=== PATIENT | female | born 1965 | race American Indian/Alaskan Native ===

== ENCOUNTER 2016-09-24 16:00 | Inpatient (IN) | payer MEDICARE ==
[2016-09-24] MEDS ORDERED: D50W (25GM) IV PRN (17:23)
[2016-09-24] MEDS ORDERED: SENOKOT PO PRN (17:23)
[2016-09-24] MEDS ORDERED: DULCOLAX PR PRN (17:23)
[2016-09-24] MEDS ORDERED: TYLENOL PO PRN (17:23)
[2016-09-24] MEDS ORDERED: VANCOMYCIN PHARMACY TO DOSE IV SCH (18:00)
--- NOTE | 2016-09-24 18:12 | History and Physical Report ---
History of Present Illness Date: 09/24/16 Referring Facility: [facility] Date of admission: 09/24/16 16:00 Chief Complaint: PVD, atherosclerosis of extremities with rest pain History of present illness: POST ADMISSION PHYSICIAN EVALUATION ONSET DATE: 08/23/2016 IMPAIRMENT GROUP CODE: 17.4 ETIOLOGIC DIAGNOSIS: PVD, atherosclerosis of extremities with rest pain STATUS CHANGES SINCE PREADMISSION SCREENING: PAS has been reviewed. In comparison, pt is with slowly improving pain control. She continues with functional deficits in self cares and mobility. Pt remains an appropriate candidate for IRU admission. PREVIOUS FUNCTIONAL STATUS: Independent with ADLs, gait, transfers prior to hospitalization CURRENT FUNCTIONAL STATUS: min-modA x2 for transfers; Angelia/CGA for gait 8 feet with RW HPI 51 y.o. female with PVD and associated rest pain previously admitted to IRU following acute care course from 08/23/16-09/13/2016. During initial admission, pt found to have an occlusion of the common femoral, left external iliac profundus and SFA arteries; required left femoral thrombectomy and left femoral to below knee bypass; IVC filter. 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 Once stable, pt was noted to have functional deficits and was admitted to IRU for aggressive therapies and ongoing medical management. Unfortunately, pt was noted to have developed a left groin infection during rehab course; transferred back to acute care on 09/16/2016. Pt underwent further revascularization to LLE; left groin washout with sartorius muscle flap; wound vac placement; IV ABX. Pt also required treatment for uncontrolled hypertension; s/p 2U pRBCs to address anemia. Pt is now transferred back to IRU to resume therapies. Past History Past Medical History: diabetes, DVT, hypertension, hyperlipidemia, PVD Past Surgical History: Other (revascularization procedures) Social history: , lives with family ( and children). denies: smoking, alcohol abuse Family history: diabetes, hypertension Medications and Allergies Allergies Allergy/AdvReac Type Severity Reaction Status Date / Time heparin Allergy Severe THROMBOCYTO Verified 09/06/16 10:08 PENIA Home Medications Medication Instructions Recorded Confirmed Last Taken Type Carvedilol [Coreg] 25 mg PO BID 08/23/16 09/15/16 1 Day Ago History Carvedilol [Coreg] 25 mg PO BID tablet 09/10/16 09/15/16 Unknown Rx Clopidogrel [Plavix] 75 mg PO QDAY tablet 09/10/16 09/15/16 Unknown Rx Fenofibrate [Tricor] 145 mg PO QDAY tablet 09/10/16 09/15/16 Unknown Rx Insulin Detemir [Levemir] 45 units SUB-Q QHS units 09/10/16 09/15/16 Unknown Rx Simvastatin [Zocor TAB] 20 mg PO QHS tablet 09/10/16 09/15/16 Unknown Rx Sodium Bicarbonate 650 mg PO BID tablet 09/10/16 09/15/16 Unknown Rx Ascorbic Acid [Vitamin C] 1,000 mg PO BID tablet 09/13/16 09/15/16 Unknown Rx Ferrous Sulfate [Feosol 325 MG tab] 325 mg PO BID tablet 09/13/16 09/15/16 Unknown Rx Insulin Detemir [Levemir] 38 units SUB-Q QHS units 09/13/16 09/15/16 Unknown Rx Warfarin [Coumadin] 5 mg PO DAILY@1700 tablet 09/13/16 09/15/16 Unknown Rx oxyCODONE /ACETAMINOPHEN [Percocet 2 tab PO Q6H PRN #30 tablet 09/13/16 Unknown Rx 5/325 mg] Active Meds: Active Medications Acetaminophen (Tylenol) 650 mg PO Q4H PRN PRN Reason: Pain MILD(1-3)/Fever >100.5/AVILA Amlodipine Besylate (Norvasc) 5 mg PO QDAY LI Ascorbic Acid (Vitamin C) 1,000 mg PO BID LI Bisacodyl (Dulcolax) 10 mg AL QDAY PRN PRN Reason: Constipation unrelieved by MOM Carvedilol (Coreg) 25 mg PO BID LI Clopidogrel Bisulfate (Plavix) 75 mg PO QDAY LI Dextrose (D50w (25gm)) 50 ml IV PRN PRN PRN Reason: Hypoglycemia Fenofibrate (Tricor) 145 mg PO QDAY LI Ferrous Sulfate (Feosol) 325 mg PO BID LI Levofloxacin/Dextrose (Levaquin 750mg/150ml) 750 mg in 150 mls @ 100 mls/hr IV Q24HR LI PRN Reason: Protocol Insulin Aspart (Novolog) 0 units SUB-Q ACHS [facility] PRN Reason: Protocol Insulin Detemir (Levemir) 10 units SUB-Q QHS [facility] Losartan Potassium (Cozaar) 50 mg PO QDAY [facility] Oxycodone/Acetaminophen (Percocet 5/325) 2 tab PO Q6H PRN PRN Reason: Pain, Moderate (4-6) Polyethylene Glycol (Miralax 3350) 17 gm PO BID PRN PRN Reason: constipation Senna (Senokot) 8.6 mg PO Q12H PRN PRN Reason: Laxative Effect Simvastatin (Zocor) 20 mg PO QHS [facility] Sodium Bicarbonate (Sodium Bicarbonate) 650 mg PO BID [facility] Vancomycin HCl (Vancomycin Pharmacy To Dose) 1 each IV PKCONSULT [facility] PRN Reason: Protocol Warfarin Sodium (Coumadin Pharmacy To Dose) 1 each PO PKCONSULT LI PRN Reason: Protocol Warfarin Sodium (Coumadin) 3 mg PO DAILY@1700 LI PRN Reason: Protocol Review of Systems All systems: negative Ears, nose, mouth and throat: no headache Cardiovascular: no chest pain Respiratory: no cough Gastrointestinal: no nausea, no vomiting Musculoskeletal: gait dysfunction, other (LLE pain, 8/10) Exam - Constitutional Vitals: Vital Signs - 12hr 09/24/16 17:21 Temperature 98.4 F Pulse Rate [ 80 From Monitor] Respiratory 18 Rate Blood Pressure 193/72 [Right Arm] O2 Sat by Pulse 100 Oximetry General appearance: no acute distress, obese - EENT Eyes: EOM intact ENT: hearing intact - Neck Neck: supple, normal ROM - Respiratory Respiratory effort: normal Respiratory: bilateral: CTA - Cardiovascular Rhythm: regular Heart Sounds: Present: S1 & S2 - Extremities Extremity abnormal: edema (LLE), other (wound vac to left groin; dressing in place to left calf; staple to left groin, no acute drainage) - Gastrointestinal General gastrointestinal: Present: soft, non-tender, normal bowel sounds - Musculoskeletal Musculoskeletal: other (3/5 RLE; 2/5 LLE; except 4/5 ankle DF/PF bilaterally) - Neurologic Neurologic: CNII-XII intact, other (sensation grossly intact) - Psychiatric Psychiatric: appropriate mood/affect, intact judgment & insight, memory intact, cooperative - Labs Labs: Laboratory Results - last 72 hr 09/24/16 17:13 POC Glucose 220 H Assessment and Plan Assessment and plan: 51 y.o female with PVD, s/p revascularization procedures to LLE; HIT; DVT; compartment syndrome, s/p fasciotomies; left groin infection; acute blood loss anemia; gait dysfunction. The patient is now medically stable, however, requires ongoing medical management. Pt is appropriate for inpatient rehabilitation admission and is thought to be able to tolerate at least 3 hours of therapy a day, 5 days a week including 1.5 hours of physical therapy and 1.5 hours of occupational therapy. Patient is able to understand and follow basic directions and has attainable rehab goals. Potential barriers/complications include falls, infection, syncope, hypotension, hypoglycemia, wound dehiscence, uncontrolled pain. Plan 1. Rehabilitation- Pt will undergo multidisciplinary/integrative rehab PT/OT, Nursing. Areas to be addressed include, but are not limited to PT for mobility , strengthening, transfer training, ROM, endurance, stairs, balance; OT for ADLs , household tasks, adaptive equipment; Nursing for carryover of therapies, pain control, education, skin integrity, medication management, bowel/bladder management; Nutrition as needed; emergency services professional for discharge planning and equipment needs. Potential interventions include appropriate assistive device or adaptive equipment. Expected overall level of functional improvement by discharge is Oscar to supervision for gait, transfers, ADLs. Pt will tentatively be discharged home with outpatient PT and wound care. Estimated length of stay is 1-2 weeks. 2. PVD- s/p multiple revasculatization procedures with noted complications; continue pain control; wound care nurse for wound vac management; ongoing need for IV ABX due to left groin infection 3. acute blood loss anemia- recheck labs in AM; continue iron supplementation 4. HTN- follow closely on current regimen; medication increased due to accelerated HTN prior to transfer; avoid hypotension 5. DM- continue ADA diet, levemir, SSI; follow closely and increase levemir as needed 6. HLD- zocor, tricor 7. DVT- coumadin - Patient Problems (1) Atherosclerosis of [place] arteries of the extremities with rest pain Current Visit: No Status: Acute Qualifiers: Peripheral atherosclerosis location: P Laterality: L (2) Infection of vascular bypass graft Current Visit: Yes Status: Acute Qualifiers: Encounter type: initial encounter Qualified Code(s): T82.7XXA - Infection and inflammatory reaction due to other cardiac and vascular devices, implants and grafts, initial encounter (3) Unsteady gait Current Visit: Yes Status: Acute (4) Acute blood loss as cause of postoperative anemia Current Visit: Yes Status: Acute (5) Diabetes Current Visit: No Status: Chronic Qualifiers: Diabetes mellitus type: type 2 Diabetes mellitus complication status: with hyperglycemia Diabetes mellitus complication detail: D Diabetic retinopathy severity: D Proliferative retinopathy type: P Diabetes mellitus macular edema: D Diabetes mellitus terminal system operator insulin use: with terminal system operator use Laterality: L Chronic kidney disease stage: C Qualified Code(s): E11.65 - Type 2 diabetes mellitus with hyperglycemia; Z79.4 - technician terminal and repeater (current) use of insulin (6) Hypertension Current Visit: Yes Status: Chronic Qualifiers: Hypertension type: essential hypertension Qualified Code(s): I10 - Essential (primary) hypertension
[2016-09-24] MEDS: PERCOCET 5/325 PO PRN (18:47)
[2016-09-24] MEDS: LEVEMIR SUB-Q SCH (20:40)
[2016-09-24] MEDS: VANCOMYCIN 2,000 MG in NACL 0.9% 500 ML 500 ML IV SCH (21:00)
[2016-09-24] MEDS: COUMADIN PO SCH (21:03)
[2016-09-24] MEDS: FEOSOL PO SCH (21:05)
[2016-09-24] MEDS: VITAMIN C PO SCH (21:06)
[2016-09-24] MEDS: COREG PO SCH (21:07)
[2016-09-24] MEDS: SODIUM BICARBONATE PO SCH (21:07)
[2016-09-24] MEDS: ZOCOR PO SCH (21:07)
[2016-09-24] MEDS ORDERED: MIRALAX 3350 PO PRN (22:00)
[2016-09-24] MEDS: NOVOLOG SUB-Q SCH (22:04)
[2016-09-25] MEDS: PERCOCET 5/325 PO PRN ×4 (02:11→21:05)
[2016-09-25 05:22] LABS: Albumin 2.3 g/dL (3.9-5); Albumin/Globulin Ratio 0.7 %; Alkaline Phosphatase 41 units/L (35-129); Anion Gap 16 mmol/L; Bilirubin,Total < 0.2 mg/dL (0.1-1.2); Blood Urea Nitrogen 8 mg/dL (7-17); Calcium 7.9 mg/dL (8.4-10.2); Carbon Dioxide 23 mmol/L (22-30); Chloride 110.2 mmol/L (98-107); Glucose 154 mg/dL (65-100); Potassium 3.7 mmol/L (3.6-5.0); Sodium 145 mmol/L (137-145); Total Protein 5.4 g/dL (6.3-8.2)
[2016-09-25 05:24] LABS: Basophils % (Auto) 0.6 % (0.0-1.8); Eosinophils % (Auto) 3.3 % (0.0-4.3); Hematocrit 23.4 % (30.3-42.9); Hemoglobin 7.6 gm/dl (10.1-14.3); Mean Corpuscular HGB Conc 32 % (30-34); Mean Corpuscular Hemoglobin 26 pg (28-32); Mean Corpuscular Volume 81 fl (79-97); Platelet Count 464 K/mm3 (140-440); Red Cell Distribution Width 17.9 % (13.2-15.2); White Blood Count 8.1 K/mm3 (4.5-11.0)
[2016-09-25 05:37] LABS: INR 3.12 (0.87-1.13)
[2016-09-25 05:39] LABS: Alanine Aminotransferase < 5 units/L (7-56)
[2016-09-25] MEDS: FEOSOL PO SCH ×2 (08:23→21:04)
[2016-09-25] MEDS: SODIUM BICARBONATE PO SCH ×2 (08:23→21:07)
[2016-09-25] MEDS: VITAMIN C PO SCH ×2 (08:23→21:06)
[2016-09-25] MEDS: PLAVIX PO SCH (08:23)
[2016-09-25] MEDS: COZAAR PO SCH (08:24)
[2016-09-25] MEDS: TRICOR PO SCH (08:24)
[2016-09-25] MEDS: NORVASC PO SCH (08:25)
[2016-09-25] MEDS: COREG PO SCH ×2 (08:25→21:13)
[2016-09-25] MEDS: NOVOLOG SUB-Q SCH ×4 (08:47→21:39)
[2016-09-25] MEDS: LEVAQUIN 750MG/150ML 750 MG/150 ML BAG IV SCH (10:57)
[2016-09-25] MEDS: VANCOMYCIN 2,000 MG in NACL 0.9% 500 ML 500 ML IV SCH ×2 (12:29→21:10)
[2016-09-25] MEDS ORDERED: COUMADIN PO SCH (17:00)
[2016-09-25] MEDS: COUMADIN PO SCH (17:11)
[2016-09-25] MEDS: ZOCOR PO SCH (21:06)
[2016-09-25] MEDS: LEVEMIR SUB-Q SCH (21:12)
[2016-09-26] MEDS: PERCOCET 5/325 PO PRN ×3 (03:13→18:06)
[2016-09-26 04:57] LABS: INR 2.84 (0.87-1.13)
[2016-09-26] MEDS: NOVOLOG SUB-Q SCH ×4 (08:34→21:19)
[2016-09-26] MEDS: TRICOR PO SCH (08:37)
[2016-09-26] MEDS: SODIUM BICARBONATE PO SCH ×2 (08:37→21:25)
[2016-09-26] MEDS: VITAMIN C PO SCH ×2 (08:37→21:17)
[2016-09-26] MEDS: PLAVIX PO SCH (08:37)
[2016-09-26] MEDS: COREG PO SCH ×2 (08:38→21:17)
[2016-09-26] MEDS: FEOSOL PO SCH ×2 (08:38→21:17)
[2016-09-26] MEDS: COZAAR PO SCH (08:38)
[2016-09-26] MEDS: NORVASC PO SCH (08:42)
[2016-09-26] MEDS: LEVAQUIN 750MG/150ML 750 MG/150 ML BAG IV SCH (11:04)
[2016-09-26] MEDS: VANCOMYCIN 2,000 MG in NACL 0.9% 500 ML 500 ML IV SCH ×2 (12:44→21:22)
[2016-09-26] MEDS: COUMADIN PO SCH (18:04)
[2016-09-26] MEDS: ZOCOR PO SCH (21:17)
[2016-09-26] MEDS: LEVEMIR SUB-Q SCH (21:18)
[2016-09-27] MEDS: PERCOCET 5/325 PO PRN ×4 (00:27→21:04)
[2016-09-27 05:01] LABS: Hematocrit 22.5 % (30.3-42.9); Hemoglobin 7.3 gm/dl (10.1-14.3); Mean Corpuscular HGB Conc 32 % (30-34); Mean Corpuscular Hemoglobin 26 pg (28-32); Mean Corpuscular Volume 80 fl (79-97); Platelet Count 469 K/mm3 (140-440); Red Blood Count 2.82 M/mm3 (3.65-5.03); White Blood Count 8.2 K/mm3 (4.5-11.0)
[2016-09-27 05:08] LABS: INR 2.8 (0.87-1.13)
[2016-09-27] MEDS: FEOSOL PO SCH ×2 (08:30→21:04)
[2016-09-27] MEDS: NORVASC PO SCH (08:31)
[2016-09-27] MEDS: SODIUM BICARBONATE PO SCH ×2 (08:31→21:05)
[2016-09-27] MEDS: TRICOR PO SCH (08:31)
[2016-09-27] MEDS: VITAMIN C PO SCH ×2 (08:31→21:03)
[2016-09-27] MEDS: PLAVIX PO SCH (08:31)
[2016-09-27] MEDS: NOVOLOG SUB-Q SCH ×4 (08:32→21:45)
[2016-09-27] MEDS: COREG PO SCH ×2 (08:32→21:02)
[2016-09-27] MEDS: COZAAR PO SCH (08:32)
[2016-09-27] MEDS ORDERED: NORVASC PO ONE (09:00)
[2016-09-27] MEDS: LEVAQUIN 750MG/150ML 750 MG/150 ML BAG IV SCH (11:15)
--- NOTE | 2016-09-27 11:28 | IRU Plan of Care ---
Interdisciplinary Plan of Care - IP IRU INTERDISCIPLINARY PLAN: [facility] Inpatient Rehab Unit Plan of Care IRU Interdisciplinary Care Plan Start: 09/24/16 17: 21 Freq: Admission then PRN Status: Active Document 09/27/16 09:29 DB (Rec: 09/27/16 09:35 DB [id number]) Interdisciplinary Problem List Interdisciplinary Problem List Interdisciplinary Problem List Impaired Bathing/Grooming Query Text:Answers will Trigger Problems Impaired Dressing and Outcomes on Worklist. Impaired Mobility Impaired Transfers Impaired Toileting Pain Management Knowledge Deficits Impaired Skin/Tissue Integrity Impaired Safety Medications Education Diabetes Education IRU Interdisciplinary Care Plan Therapy Services Therapy Services Will Include: Physical Therapy Query Text:Patient will be seen for a Occupational Therapy minimum of 3 hours of daily therapy 5 out of 7 days a week. Therapy intensity may be adjusted within a 7 consecutive day period to effectively serve the individual needs of the patient. Treatment Frequency/Intensity/Duration Treatment Frequency 5 days per week Treatment Intensity 1.5 hours per discipline (PT/OT ) daily Treatment Duration 10-14 days Problem Area: Eating/Swallowing Eating/Swallowing Outcomes Eating/Swallowing Interventions Problem Area: Bathing/Grooming Bathing/Grooming Outcomes Improve [place] w/ Grooming Improve [place] w/ Bathing Bathing/Grooming Interventions ADL Training Use of Assistive Devices Therapeutic Exercise Therapeutic Activity Balance Work Activity Tolerance Work Patient/Caregiver Education Problem Area: Dressing Dressing Outcomes Improve [place] w/ UB Dressing Improve [place] w/ LB Dressing Dressing Interventions ADL Training Use of Assistive Devices Therapeutic Exercise Balance Work Patient/Caregiver Education Problem Area: Mobility Mobility Outcomes Improve [place] w/ Bed Mobility Improve [place] w/ Ambulation Improve [place] w/ Stairs /Curb Mobility Interventions Therapeutic Exercise Neuromuscular Re-Ed. Activity Tolerance Work Use of Assistive Devices Gait Training Problem Area: Transfers Transfers Outcomes Improve [place] w/ Bed Transfers Improve [place] w/ Car Transfers Transfers Interventions Transfer Training Therapeutic Exercise Neuromuscular Re-Education Activity Tolerance Work Use of Assistive Devices Problem Area: Bowel/Bladder Managment Bowel/Bladder Outcomes Continent of Bladder Remain free of UTI Bowel/Bladder Interventions Bladder Training Program Education for Assistive Devices (Ostomy, Cath) Patient/Caregiver Education Problem Area: Toileting Toileting Outcomes Improve [place] w/ Toileting Toileting Interventions ADL Training Balance Work Use of Assistive Devices Patient/Caregiver Education Problem Area: Nutrition Nutrition Outcomes Understand and Comply w/ Diet Improve/Maintain Oral Intake Nutrition Interventions Monitor Nutrient Intake Patient/Caregiver Education Problem Area: Comprehension Comprehension Outcomes Comprehension Interventions Problem Area: Expression Expression Outcomes Expression Interventions Problem Area: Problem Solving Problem Solving Outcomes Problem Solving Interventions Problem Area: Memory Memory Outcomes Memory Interventions Problem Area: Pain Management Pain Management Outcomes Demonstrate/Verbalize Pain Strategies Pain Management Interventions Medication Management Positioning/Turning Patient/Caregiver Education Problem Area: Knowledge Deficits Knowledge Deficits Outcomes Verbalize Precautions Knowledge Deficits Interventions Disease/Injury/Sx. Intervention Education Medication Use Education Safety Education Problem Area: Skin/Tissue Integrity Skin/Tissue Integrity Outcomes Exhibit Healing of Wound/ Incision Demonstrate Understanding of Pressure Relief Skin/Tissue Integrity Interventions Skin/Wound Care Pressure Relief Instruction Dressing Change Education Positioning/Turning Problem Area: Social Interaction Social Interaction Outcomes Social Interaction Interventions Problem Area: Adjustment to Disability Adjustment to Disability Outcomes Adjustment to Disability Interventions Problem Area: Discharge Concerns Discharge Concerns Outcomes Discharge Home w/ Necessary Equipment Have Home Health/Outpatient Services Discharge Concerns Interventions Discharge Planning Family/Caregiver Conference Family/Caregiver Training Problem Area: Community Reintegration Community Reintegration Outcomes Demonstrate Understanding of Community Resources Community Reintegration Interventions Provide Community Resources Problem Area: Home Management Home Management Outcomes Home Management Interventions Problem Area: Safety Safety Outcomes Provide Safe Environment Perform Selfcare Safely Demonstrate Good Safety w/ Transfers/Mobility Safety Interventions Identify Fall Risk [place] Pt. to Environment Reduce Environmental Hazards Problem Area: Medication Education Medication Education Outcomes Patient/Caregiver will Verbalize Understanding of Medications Medication Education Interventions Explain Administration/Side Effects/Interactions Problem Area: Diabetes Education Diabetes Education Outcomes Demonstrate Knowledge of Resources Availlable in Diabetic Ed. Folder Diabetes Education Interventions Give Pt. Diabetes Education Folder Discuss Pathophysiology of Diabetes Problem Area: Oxygenation Oxygenation Outcomes Oxygenation Interventions Problem Area: Cardiovascular Cardiovascular Outcomes Cardiovascular Interventions Physician Only Medical Prognosis and Rehabilitation Patient demonstrates good Potential (Completed by Physician) rehab potential. Medical Prognosis: Good This plan of care has been developed based on the findings from the pre- admission assessment, post admission physician evaluation, information gathered from the assessments from all therapy disciplines and other pertinent clinicians. The plan of care has been reviewed and discussed in collaboration with the interdisciplinary team. The plan of care will be reviewed and updated at least weekly. 51 y.o female with PVD, s/p revascularization procedures to LLE; HIT; DVT; compartment syndrome, s/p fasciotomies; left groin infection; acute blood loss anemia; gait dysfunction. The patient remains at risk for falls, infection, syncope, hypotension, hypoglycemia, wound dehiscence, uncontrolled pain. Pain and anemia are currently stable; BP remains uncontrolled with med adjustments made on today. Pt is tolerating therapies and continues with functional deficits; pt remains an appropriate candidate for IRU admission.
--- NOTE | 2016-09-27 11:29 | Progress Note ---
Assessment and Plan 51 y.o morbidly obese female with PVD, s/p revascularization procedures to LLE; HIT; DVT; compartment syndrome, s/p fasciotomies; left groin infection; acute blood loss anemia; gait dysfunction - PVD- s/p multiple revasculatization procedures with noted complications; continue pain control; wound care nurse consulted for wound vac management; ongoing need for IV ABX due to left groin infection - acute blood loss anemia- stable; transfer if Hgb drops<7; continue iron supplementation - HTN- uncontrolled; norvasc increased on today; continue to follow closely - DM- stable on current regimen - DVT/HIT positive- coumadin - morbid obesity- BMI 47.6 - Patient Problems (1) Atherosclerosis of [place] arteries of the extremities with rest pain Current Visit: No Status: Acute Qualifiers: Peripheral atherosclerosis location: P Laterality: L (2) Infection of vascular bypass graft Current Visit: Yes Status: Acute Qualifiers: Encounter type: initial encounter Qualified Code(s): T82.7XXA - Infection and inflammatory reaction due to other cardiac and vascular devices, implants and grafts, initial encounter (3) Unsteady gait Current Visit: Yes Status: Acute (4) Acute blood loss as cause of postoperative anemia Current Visit: Yes Status: Acute (5) Diabetes Current Visit: No Status: Chronic Qualifiers: Diabetes mellitus type: type 2 Diabetes mellitus complication status: with hyperglycemia Diabetes mellitus complication detail: D Diabetic retinopathy severity: D Proliferative retinopathy type: P Diabetes mellitus macular edema: D Diabetes mellitus fdc insulin use: with fdc use Laterality: L Chronic kidney disease stage: C Qualified Code(s): E11.65 - Type 2 diabetes mellitus with hyperglycemia; Z79.4 - senior living (current) use of insulin (6) Hypertension Current Visit: Yes Status: Chronic Qualifiers: Hypertension type: essential hypertension Qualified Code(s): I10 - Essential (primary) hypertension (7) Morbid (severe) obesity due to excess calories Current Visit: Yes Status: Acute Subjective Date of service: 09/27/16 Principal diagnosis: PVD, athlerosclerosis with rest pain Interval history: Pt seen in room this AM, F/U IPR course, PVD, left groin infection. Pain remains controlled on current regimen. BP uncontrolled; meds modified Objective - Constitutional Vitals: Vital Signs - 12hr 09/27/16 09/27/16 09/27/16 07:46 08:00 08:31 Pulse Rate 77 Respiratory 20 Rate Respiratory 20 Rate [Bilateral Foot] Respiratory 20 Rate [Left Leg] Blood Pressure 182/88 09/27/16 09/27/16 08:32 09:24 Pulse Rate 77 80 Respiratory Rate Respiratory Rate [Bilateral Foot] Respiratory Rate [Left Leg] Blood Pressure 182/88 170/85 General appearance: Present: no acute distress, obese, other (in WC) - EENT Eyes: EOM intact ENT: hearing intact - Neck Neck: supple, normal ROM - Respiratory Respiratory effort: normal Respiratory: bilateral: CTA - Cardiovascular Rhythm: regular Heart Sounds: Present: S1 & S2 Extremity abnormal: edema (LLE), other (wound vac in place) - Gastrointestinal General gastrointestinal: Present: soft, non-tender - Neurologic Neurologic: CNII-XII intact, moves all extremities - Psychiatric Psychiatric: appropriate mood/affect, cooperative - Allied health notes Allied health notes reviewed: PT (modA for transfers and gait up to 70 feet with RW), OT (Angelia for LB dressing; Dash for grooming) - Labs CBC & Chem 7: 09/27/16 04:35 09/25/16 04:45 Labs: Abnormal lab results 09/26/16 09/26/16 09/26/16 Range/Units 11:46 16:41 20:55 RBC (3.65-5.03) M/mm3 Hgb (10.1-14.3) gm/dl Hct (30.3-42.9) % MCH (28-32) pg RDW (13.2-15.2) % Plt Count (140-440) K/mm3 PT (12.2-14.9) Sec. INR (0.87-1.13) POC Glucose 152 H 190 H 210 H (70-105) 09/27/16 09/27/16 09/27/16 Range/Units 04:31 04:35 06:36 RBC 2.82 L (3.65-5.03) M/mm3 Hgb 7.3 L (10.1-14.3) gm/dl Hct 22.5 L (30.3-42.9) % MCH 26 L (28-32) pg RDW 18.0 H (13.2-15.2) % Plt Count 469 H (140-440) K/mm3 PT 29.7 H (12.2-14.9) Sec. INR 2.80 H (0.87-1.13) POC Glucose 141 H (70-105) 09/27/16 Range/Units 11:15 RBC (3.65-5.03) M/mm3 Hgb (10.1-14.3) gm/dl Hct (30.3-42.9) % MCH (28-32) pg RDW (13.2-15.2) % Plt Count (140-440) K/mm3 PT (12.2-14.9) Sec. INR (0.87-1.13) POC Glucose 139 H (70-105)
[2016-09-27] MEDS: VANCOMYCIN 2,000 MG in NACL 0.9% 500 ML 500 ML IV SCH (13:28)
[2016-09-27] MEDS: COUMADIN PO SCH (18:24)
[2016-09-27] MEDS: LEVEMIR SUB-Q SCH (21:00)
[2016-09-27] MEDS: ZOCOR PO SCH (21:05)
[2016-09-28] MEDS: PERCOCET 5/325 PO PRN ×4 (03:52→21:13)
[2016-09-28] MEDS: NOVOLOG SUB-Q SCH ×3 (07:30→16:51)
[2016-09-28] MEDS: FEOSOL PO SCH ×2 (08:56→22:40)
[2016-09-28] MEDS: TRICOR PO SCH (08:57)
[2016-09-28] MEDS: VITAMIN C PO SCH ×2 (08:57→22:39)
[2016-09-28] MEDS: PLAVIX PO SCH (08:58)
[2016-09-28] MEDS: NORVASC PO SCH (08:58)
[2016-09-28] MEDS: COREG PO SCH ×2 (08:59→22:38)
[2016-09-28] MEDS: COZAAR PO SCH (08:59)
[2016-09-28] MEDS: SODIUM BICARBONATE PO SCH ×2 (08:59→22:40)
[2016-09-28] MEDS: LEVAQUIN 750MG/150ML 750 MG/150 ML BAG IV SCH (10:00)
[2016-09-28] MEDS ORDERED: COZAAR PO ONE (10:00)
[2016-09-28 10:11] LABS: INR 1.93 (0.87-1.13)
[2016-09-28] MEDS: VANCOMYCIN 2,000 MG in NACL 0.9% 500 ML 500 ML IV SCH (12:34)
--- NOTE | 2016-09-28 14:40 | Progress Note ---
Assessment and Plan 51 y.o morbidly obese female with PVD, s/p revascularization procedures to LLE; HIT; DVT; compartment syndrome, s/p fasciotomies; left groin infection; acute blood loss anemia; gait dysfunction - PVD- s/p multiple revasculatization procedures with noted complications; continue pain control - wound care- wound vac and dressing changesd completed on today - left groin infection- continue IV ABX - acute blood loss anemia- repeat H/H in AM; continue iron supplementation - HTN- uncontrolled; norvasc increased on yesterday; cozaar increased on today; continue to follow - DM- stable on current regimen - DVT/HIT positive- coumadin - morbid obesity- BMI 47.6 - Patient Problems (1) Atherosclerosis of [place] arteries of the extremities with rest pain Current Visit: No Status: Acute Qualifiers: Peripheral atherosclerosis location: P Laterality: L (2) Infection of vascular bypass graft Current Visit: Yes Status: Acute Qualifiers: Encounter type: initial encounter Qualified Code(s): T82.7XXA - Infection and inflammatory reaction due to other cardiac and vascular devices, implants and grafts, initial encounter (3) Unsteady gait Current Visit: Yes Status: Acute (4) Acute blood loss as cause of postoperative anemia Current Visit: Yes Status: Acute (5) Diabetes Current Visit: No Status: Chronic Qualifiers: Diabetes mellitus type: type 2 Diabetes mellitus complication status: with hyperglycemia Diabetes mellitus complication detail: D Diabetic retinopathy severity: D Proliferative retinopathy type: P Diabetes mellitus macular edema: D Diabetes mellitus termite treater insulin use: with senior care use Laterality: L Chronic kidney disease stage: C Qualified Code(s): E11.65 - Type 2 diabetes mellitus with hyperglycemia; Z79.4 - [facility] (current) use of insulin (6) Hypertension Current Visit: Yes Status: Chronic Qualifiers: Hypertension type: essential hypertension Qualified Code(s): I10 - Essential (primary) hypertension (7) Morbid (severe) obesity due to excess calories Current Visit: Yes Status: Acute Subjective Date of service: 09/28/16 Principal diagnosis: PVD, athlerosclerosis with rest pain Interval history: Pt seen in room this AM, F/U IPR course, PVD, left groin infection. Pain reported 03/22; wound nurse present to complete vac/dressing changes Objective - Constitutional Vitals: Vital Signs - 12hr 09/28/16 09/28/16 09/28/16 07:53 08:58 08:59 Temperature 98.8 F Pulse Rate 76 76 Pulse Rate [ 76 Right Brachial] Respiratory 16 Rate Blood Pressure 174/80 174/80 Blood Pressure 174/80 [Right Arm] O2 Sat by Pulse 97 Oximetry 09/28/16 10:55 Temperature Pulse Rate Pulse Rate [ Right Brachial] Respiratory Rate Blood Pressure 174/80 Blood Pressure [Right Arm] O2 Sat by Pulse Oximetry General appearance: Present: mild distress, obese - EENT Eyes: EOM intact ENT: hearing intact - Neck Neck: supple, normal ROM - Respiratory Respiratory effort: normal Extremity abnormal: edema (LLE) - Musculoskeletal Musculoskeletal: left sided weakness (LLE) - Neurologic Neurologic: CNII-XII intact - Psychiatric Psychiatric: appropriate mood/affect, cooperative - Allied health notes Allied health notes reviewed: PT (min-modA for transfers; Angelia for gait up to 70 feet) - Labs CBC & Chem 7: 09/27/16 04:35 09/25/16 04:45 Labs: Abnormal lab results 09/27/16 09/27/16 09/28/16 Range/Units 16:18 21:08 06:31 PT (12.2-14.9) Sec. INR (0.87-1.13) POC Glucose 142 H 215 H 132 H (70-105) 09/28/16 09/28/16 Range/Units 11:41 Unknown PT 22.1 H (12.2-14.9) Sec. INR 1.93 H (0.87-1.13) POC Glucose 150 H (70-105)
[2016-09-28] MEDS: COUMADIN PO SCH (16:51)
[2016-09-28] MEDS: ZOCOR PO SCH (22:39)
[2016-09-29] MEDS: NOVOLOG SUB-Q SCH ×5 (03:44→22:00)
[2016-09-29] MEDS: PERCOCET 5/325 PO PRN ×5 (03:47→23:18)
[2016-09-29 05:28] LABS: Hematocrit 22.6 % (30.3-42.9); Hemoglobin 7.3 gm/dl (10.1-14.3)
[2016-09-29 05:39] LABS: INR 2.17 (0.87-1.13)
[2016-09-29] MEDS: LEVEMIR SUB-Q SCH ×2 (05:40→23:22)
[2016-09-29] MEDS: LEVAQUIN 750MG/150ML 750 MG/150 ML BAG IV SCH (09:08)
[2016-09-29] MEDS: COZAAR PO SCH (09:11)
[2016-09-29] MEDS: NORVASC PO SCH (09:12)
[2016-09-29] MEDS: COREG PO SCH ×2 (09:12→23:20)
[2016-09-29] MEDS: FEOSOL PO SCH ×2 (09:12→23:22)
[2016-09-29] MEDS: SODIUM BICARBONATE PO SCH ×2 (09:12→23:21)
[2016-09-29] MEDS: VITAMIN C PO SCH ×2 (09:12→23:21)
[2016-09-29] MEDS: TRICOR PO SCH (09:13)
[2016-09-29] MEDS: PLAVIX PO SCH (09:13)
[2016-09-29] MEDS: VANCOMYCIN 2,000 MG in NACL 0.9% 500 ML 500 ML IV SCH (12:17)
--- NOTE | 2016-09-29 16:00 | Progress Note ---
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- coumadin, INR therapeutic - morbid obesity- BMI 47.6 - Patient Problems (1) Atherosclerosis of [place] arteries of the extremities with rest pain Current Visit: No Status: Acute Qualifiers: Peripheral atherosclerosis location: P Laterality: L (2) Infection of vascular bypass graft Current Visit: Yes Status: Acute Qualifiers: Encounter type: initial encounter Qualified Code(s): T82.7XXA - Infection and inflammatory reaction due to other cardiac and vascular devices, implants and grafts, initial encounter (3) Unsteady gait Current Visit: Yes Status: Acute (4) Acute blood loss as cause of postoperative anemia Current Visit: Yes Status: Acute (5) Diabetes Current Visit: No Status: Chronic Qualifiers: Diabetes mellitus type: type 2 Diabetes mellitus complication status: with hyperglycemia Diabetes mellitus complication detail: D Diabetic retinopathy severity: D Proliferative retinopathy type: P Diabetes mellitus macular edema: D Diabetes mellitus termination clerk insulin use: with care home use Laterality: L Chronic kidney disease stage: C Qualified Code(s): E11.65 - Type 2 diabetes mellitus with hyperglycemia; Z79.4 - manager terminal (current) use of insulin (6) Hypertension Current Visit: Yes Status: Chronic Qualifiers: Hypertension type: essential hypertension Qualified Code(s): I10 - Essential (primary) hypertension (7) Morbid (severe) obesity due to excess calories Current Visit: Yes Status: Acute Subjective Date of service: 09/29/16 Principal diagnosis: PVD, athlerosclerosis with rest pain Interval history: Pt seen in dining room this afternoon, F/U IPR course, PVD, left groin infection. Pain medication not covering for 6hours in between doses; interval changed to Q4hr. Pt also with some nausea at lunchtime Objective - Constitutional Vitals: Vital Signs - 12hr 09/29/16 09/29/16 09/29/16 08:00 09:11 10:00 Temperature 98.7 F Pulse Rate 75 Pulse Rate [ 75 From Monitor] Pulse Rate [ 75 75 Right Brachial] Respiratory 18 18 Rate Blood Pressure 155/69 Blood Pressure 155/69 [Right Arm] O2 Sat by Pulse 99 Oximetry General appearance: Present: mild distress, obese - EENT Eyes: EOM intact ENT: hearing intact - Neck Neck: supple, normal ROM - Respiratory Respiratory effort: normal Extremity abnormal: edema (stable LLE) - Musculoskeletal Musculoskeletal: left sided weakness (LLE ) - Neurologic Neurologic: CNII-XII intact - Psychiatric Psychiatric: cooperative - Allied health notes Allied health notes reviewed: PT (CGA-supervision for transfers; Angelia up to 85 feet with RW) - Labs CBC & Chem 7: 09/29/16 05:10 09/25/16 04:45 Labs: Abnormal lab results 09/28/16 09/28/16 09/29/16 Range/Units 16:37 21:15 05:10 Hgb (10.1-14.3) gm/dl Hct (30.3-42.9) % PT 24.2 H (12.2-14.9) Sec. INR 2.17 H (0.87-1.13) POC Glucose 185 H 149 H (70-105) 09/29/16 09/29/16 09/29/16 Range/Units 05:10 07:43 11:47 Hgb 7.3 L (10.1-14.3) gm/dl Hct 22.6 L (30.3-42.9) % PT (12.2-14.9) Sec. INR (0.87-1.13) POC Glucose 172 H 131 H (70-105)
[2016-09-29] MEDS: COUMADIN PO SCH (17:35)
[2016-09-29] MEDS: PHENERGAN PO PRN (18:10)
[2016-09-29] MEDS: ZOCOR PO SCH (23:20)
[2016-09-30] MEDS: PERCOCET 5/325 PO PRN ×4 (07:01→22:32)
[2016-09-30 07:55] LABS: INR 2.42 (0.87-1.13)
[2016-09-30] MEDS: NORVASC PO SCH (09:09)
[2016-09-30] MEDS: FEOSOL PO SCH ×2 (09:09→22:27)
[2016-09-30] MEDS: SODIUM BICARBONATE PO SCH ×2 (09:09→22:27)
[2016-09-30] MEDS: PLAVIX PO SCH (09:09)
[2016-09-30] MEDS: TRICOR PO SCH (09:10)
[2016-09-30] MEDS: COZAAR PO SCH (09:10)
[2016-09-30] MEDS: COREG PO SCH ×2 (09:10→22:27)
[2016-09-30] MEDS: VITAMIN C PO SCH ×2 (09:10→22:29)
[2016-09-30] MEDS: NOVOLOG SUB-Q SCH ×3 (09:11→16:41)
[2016-09-30] MEDS: LEVAQUIN 750MG/150ML 750 MG/150 ML BAG IV SCH (09:21)
[2016-09-30] MEDS: VANCOMYCIN 2,000 MG in NACL 0.9% 500 ML 500 ML IV SCH (12:50)
[2016-09-30] MEDS: PHENERGAN PO PRN (13:38)
--- NOTE | 2016-09-30 13:51 | Progress Note ---
Assessment and Plan 51 y.o morbidly obese female with PVD, s/p revascularization procedures to LLE; HIT; DVT; compartment syndrome, s/p fasciotomies; left groin infection; acute blood loss anemia; gait dysfunction - PVD- s/p multiple revasculatization procedures with noted complications; pain improved, maintain on current dose - wound care- wound care nurse following for wound vac care and dressing changes - left groin infection- continue IV ABX; F/U with ID on length - acute blood loss anemia- continue iron supplementation; recheck labs on Tuesday - HTN- SBP 120 last night, 180 this AM; however, may be worsened due to pain; currently maxed on active BP meds; if remains elevated, will consult IM for better control - DM- stable - DVT/HIT positive- coumadin, INR therapeutic - morbid obesity- BMI 47.6 - Patient Problems (1) Atherosclerosis of [place] arteries of the extremities with rest pain Current Visit: No Status: Acute Qualifiers: Peripheral atherosclerosis location: P Laterality: L (2) Infection of vascular bypass graft Current Visit: Yes Status: Acute Qualifiers: Encounter type: initial encounter Qualified Code(s): T82.7XXA - Infection and inflammatory reaction due to other cardiac and vascular devices, implants and grafts, initial encounter (3) Unsteady gait Current Visit: Yes Status: Acute (4) Acute blood loss as cause of postoperative anemia Current Visit: Yes Status: Acute (5) Diabetes Current Visit: No Status: Chronic Qualifiers: Diabetes mellitus type: type 2 Diabetes mellitus complication status: with hyperglycemia Diabetes mellitus complication detail: D Diabetic retinopathy severity: D Proliferative retinopathy type: P Diabetes mellitus macular edema: D Diabetes mellitus assisted insulin use: with moth exterminator use Laterality: L Chronic kidney disease stage: C Qualified Code(s): E11.65 - Type 2 diabetes mellitus with hyperglycemia; Z79.4 - [facility] (current) use of insulin (6) Hypertension Current Visit: Yes Status: Chronic Qualifiers: Hypertension type: essential hypertension Qualified Code(s): I10 - Essential (primary) hypertension (7) Morbid (severe) obesity due to excess calories Current Visit: Yes Status: Acute Subjective Date of service: 09/30/16 Principal diagnosis: PVD, athlerosclerosis with rest pain Interval history: Pt seen in room this AM, F/U IPR course, PVD, left groin infection. Pain levels improved with interval adjustment on yesterday; +BM Objective - Constitutional Vitals: Vital Signs - 12hr 09/30/16 09/30/16 08:00 09:09 Temperature 98.5 F Pulse Rate 74 Pulse Rate [ 74 Right Brachial] Respiratory 20 Rate Blood Pressure 180/83 Blood Pressure 180/83 [Right Arm] O2 Sat by Pulse 97 Oximetry General appearance: Present: no acute distress, obese, other (in bed) - EENT Eyes: EOM intact ENT: hearing intact - Neck Neck: supple - Respiratory Respiratory effort: normal Extremity abnormal: other (Wound vac to LLE) - Neurologic Neurologic: CNII-XII intact, moves all extremities - Psychiatric Psychiatric: appropriate mood/affect, intact judgment & insight, memory intact, cooperative - Labs CBC & Chem 7: 09/29/16 05:10 09/30/16 07:25 Labs: Abnormal lab results 09/29/16 09/29/16 09/30/16 Range/Units 16:44 21:39 06:46 PT (12.2-14.9) Sec. INR (0.87-1.13) POC Glucose 214 H 209 H 158 H (70-105) 09/30/16 09/30/16 Range/Units 07:25 11:47 PT 26.4 H (12.2-14.9) Sec. INR 2.42 H (0.87-1.13) POC Glucose 150 H (70-105)
[2016-09-30] MEDS: COUMADIN PO SCH (16:55)
[2016-09-30] MEDS: LEVEMIR SUB-Q SCH (22:34)
[2016-10-01] MEDS: PERCOCET 5/325 PO PRN ×4 (02:17→20:10)
[2016-10-01 07:16] LABS: INR 2.3 (0.87-1.13)
[2016-10-01] MEDS: NOVOLOG SUB-Q SCH ×4 (07:30→21:17)
[2016-10-01] MEDS: VITAMIN C PO SCH ×2 (08:25→21:16)
[2016-10-01] MEDS: COZAAR PO SCH (08:26)
[2016-10-01] MEDS: FEOSOL PO SCH ×2 (08:26→21:16)
[2016-10-01] MEDS: PLAVIX PO SCH (08:26)
[2016-10-01] MEDS: NORVASC PO SCH (08:27)
[2016-10-01] MEDS: SODIUM BICARBONATE PO SCH ×2 (08:27→21:16)
[2016-10-01] MEDS: TRICOR PO SCH (08:28)
[2016-10-01] MEDS: COREG PO SCH ×2 (08:28→21:16)
[2016-10-01] MEDS: LEVAQUIN 750MG/150ML 750 MG/150 ML BAG IV SCH (09:32)
[2016-10-01] MEDS: VANCOMYCIN 2,000 MG in NACL 0.9% 500 ML 500 ML IV SCH (14:13)
[2016-10-01] MEDS: COUMADIN PO SCH (16:52)
[2016-10-01] MEDS: ZOCOR PO SCH (21:16)
[2016-10-01] MEDS: LEVEMIR SUB-Q SCH (21:18)
[2016-10-02] MEDS: PERCOCET 5/325 PO PRN ×5 (03:22→21:28)
[2016-10-02 06:19] LABS: INR 2.57 (0.87-1.13)
[2016-10-02] MEDS: NOVOLOG SUB-Q SCH ×4 (08:27→21:32)
[2016-10-02] MEDS: NORVASC PO SCH (08:28)
[2016-10-02] MEDS: COZAAR PO SCH (08:29)
[2016-10-02] MEDS: FEOSOL PO SCH ×2 (08:29→21:27)
[2016-10-02] MEDS: TRICOR PO SCH (08:30)
[2016-10-02] MEDS: SODIUM BICARBONATE PO SCH ×2 (08:30→21:27)
[2016-10-02] MEDS: VITAMIN C PO SCH ×2 (08:30→21:28)
[2016-10-02] MEDS: COREG PO SCH ×2 (08:30→21:30)
[2016-10-02] MEDS: PLAVIX PO SCH (08:30)
--- NOTE | 2016-10-02 11:18 | Progress Note ---
Subjective Date of service: 10/02/16 Principal diagnosis: PVD, athlerosclerosis with rest pain Interval history: patient seen and examined today. no complaint. slept well. doing well with PT/ OT. no N/V/C/D. had BM yesterday. no fever, no SOB, no CP Objective - Constitutional Vitals: Vital Signs - 12hr 10/02/16 10/02/16 10/02/16 03:22 04:22 08:01 Temperature 98.8 F Pulse Rate Pulse Rate [ 76 Right Brachial] Respiratory 18 18 18 Rate Blood Pressure Blood Pressure 166/61 [Right Arm] O2 Sat by Pulse 96 Oximetry 10/02/16 10/02/16 10/02/16 08:28 08:29 08:30 Temperature Pulse Rate 76 76 76 Pulse Rate [ Right Brachial] Respiratory Rate Blood Pressure 166/61 166/61 166/61 Blood Pressure [Right Arm] O2 Sat by Pulse Oximetry - EENT Eyes: PERRL ENT: hearing intact - Neck Neck: supple - Respiratory Respiratory effort: normal Respiratory: bilateral: CTA - Breasts Breasts: Present: deferred - Cardiovascular Rhythm: regular Heart Sounds: Present: S1 & S2 Extremities: no ischemia, pulses intact Extremity abnormal: edema (of left foot) - Gastrointestinal Rectal Exam: deferred - Genitourinary Female genitourinary: Present: deferred - Integumentary Integumentary: Present: clear, warm, dry - Musculoskeletal Musculoskeletal: Present: strength equal bilaterally - Neurologic Neurologic: CNII-XII intact - Psychiatric Psychiatric: appropriate mood/affect, intact judgment & insight, cooperative - Allied health notes Allied health notes reviewed: nursing, PT, OT FIMS assessment as documented by PT/OT/ST: Grooming Patient cleans teeth/dentures: Yes Patient kumar/brushes hair: Yes Patient washes, rinses and Yes dries face: Patient washes, rinses and Yes dries hands: Patient performs (no make-up/ 4/4 (100%) shaving): Grooming FIM Score 6. Modified [place] (Needs equipment/ device . Extra time.) Toileting Toileting Device Commode over Toilet Patient able to: Adjust clothes before,Clean self,Adjust clothes after Patient able to perform: 3/3 (100%) Toileting FIM Score 4. Minimal Assistance (Patient = 75% or more. Needs touching.) Social interaction/Memory/Problem solving Social Interaction FIM Score 7. Complete [place] (Interacts appropriately. Controls temper.) Memory FIM Score 6. Modified [place](Mild difficulty remembering people/routines.) Problem Solving FIM Score 6. Mod. [place] (Mild difficulty or needs more time w/ complex.) Transfers Mode of Locomotion: Wheelchair Bed/Chair/Wheelchair Transfers 4. Minimal Assistance (Patient = 75% or more. FIM Score Needs touching.) Toilet Transfers FIM Score 5. Supervision (Needs supervision or cueing.) Patient transferred to: Shower Shower Transfers FIM Score 4. Minimal Assistance (Patient = 75% or more. Needs touching.) Locomotion- Stairs Device used on Stairs Handrail/s Number of Stairs Ascended/ 4 Descended Patient used handrail/support: Yes Stairs FIM Score 2. Maximal Assistance (Patient = 25% or more, 4 - 6 stairs.) Locomotion- walk/wheelchair Most Frequent Mode of Walking Locomotion: Ambulation Distance 120 Walking FIM Score 2. Maximal Assistance (Patient = 25% or more. Minimum of 50 ft.) Wheelchair Propulsion Distance 160 Wheelchair FIM Score 5. Supervision (Minimum 150 ft. supv./cues or 50 ft. independently.) Eating Eating Device Adjusted Table Height Eating FIM Score 6. Modified [place] (Special consistency or uses device.) Dressing-Upper body Patient retrieves clothing Yes items: Patient applies/removes UE No prosthesis or orthosis: Upper Body Dressing FIM Score 6. Modified [place] (Needs equipment, velcro or pros./orth.) Dressing-lower body Lower Body Dressing Device Sock Aid Patient retrieves clothing Yes items: Patient applies/removes LE No: n/a prosthesis or orthosis: Lower Body Dressing FIM Score 5. Supv./Set-Up (Cary sets out clothes or applies pros./orth.) - Labs CBC & Chem 7: 09/29/16 05:10 09/30/16 07:25 Labs: Laboratory Results - last 72 hr 09/29/16 09/29/16 09/29/16 11:47 16:44 21:39 PT INR Creatinine Estimated GFR POC Glucose 131 H 214 H 209 H Vancomycin Trough 09/30/16 09/30/16 09/30/16 06:46 07:25 07:25 PT 26.4 H INR 2.42 H Creatinine 1.1 Estimated GFR > 60 POC Glucose 158 H Vancomycin Trough 09/30/16 09/30/16 09/30/16 11:47 16:10 21:15 PT INR Creatinine Estimated GFR POC Glucose 150 H 112 H 177 H Vancomycin Trough 10/01/16 10/01/16 10/01/16 06:03 06:53 11:00 PT 25.4 H INR 2.30 H Creatinine Estimated GFR POC Glucose 142 H Vancomycin Trough 15.8 10/01/16 10/01/16 10/01/16 11:49 16:37 20:23 PT INR Creatinine Estimated GFR POC Glucose 157 H 187 H 163 H Vancomycin Trough 10/02/16 10/02/16 04:54 06:34 PT 27.7 H INR 2.57 H Creatinine Estimated GFR POC Glucose 116 H Vancomycin Trough Assessment and Plan 51 y.o morbidly obese female with PVD, s/p revascularization procedures to LLE; HIT; DVT; compartment syndrome, s/p fasciotomies; left groin infection; acute blood loss anemia; gait dysfunction. doing well with PT/OT - PVD- s/p multiple revasculatization procedures with noted complications; pain improved, maintain on current dose - wound care- wound care nurse following for wound vac care and dressing changes - left groin infection- continue IV ABX; F/U with ID on length - acute blood loss anemia- continue iron supplementation; recheck labs on Tuesday. no anemic symptom for now. - HTN- BP around 160-180/70. currently maxed on active BP meds; will consider IM consult tomorrow if still elevated. - DM- stable - DVT/HIT positive- coumadin, INR therapeutic - morbid obesity- BMI 47.6 - Patient Problems (1) Atherosclerosis of [place] arteries of the extremities with rest pain Current Visit: No Status: Acute Qualifiers: Peripheral atherosclerosis location: P Laterality: L (2) HIT (heparin-induced thrombocytopenia) Current Visit: No Status: Acute (3) Hypertension Current Visit: Yes Status: Chronic Qualifiers: Hypertension type: essential hypertension Qualified Code(s): I10 - Essential (primary) hypertension (4) Diabetes Current Visit: No Status: Chronic Qualifiers: Diabetes mellitus type: type 2 Diabetes mellitus complication status: with hyperglycemia Diabetes mellitus complication detail: D Diabetic retinopathy severity: D Proliferative retinopathy type: P Diabetes mellitus macular edema: D Diabetes mellitus intermodal truck driver insulin use: with intermodal truck driver use Laterality: L Chronic kidney disease stage: C Qualified Code(s): E11.65 - Type 2 diabetes mellitus with hyperglycemia; Z79.4 - [facility] (current) use of insulin (5) Unsteady gait Current Visit: Yes Status: Acute (6) Acute blood loss as cause of postoperative anemia Current Visit: Yes Status: Acute (7) Morbid (severe) obesity due to excess calories Current Visit: Yes Status: Acute
[2016-10-02] MEDS: LEVAQUIN 750MG/150ML 750 MG/150 ML BAG IV SCH (11:20)
[2016-10-02] MEDS: VANCOMYCIN 2,000 MG in NACL 0.9% 500 ML 500 ML IV SCH (13:04)
[2016-10-02] MEDS: COUMADIN PO SCH (17:05)
--- NOTE | 2016-10-02 19:13 | Consultation ---
History of Present Illness - Reason for Consult Consult date: 10/02/16 left groin infection Requesting physician: MARISELA TRAN - History of Present Illness Patient is known to me during her initial admission in acute unit. She was transferred to rehab to complete iv antibiotics as well as physical therapy. I am called to evaluate patient for need for further iv abx. Patient seen today IN A PHYSICAL THERAPY SESSION. sHE IS MUCH IMPROVED. Assessment 51 y.o morbidly obese female with PVD, s/p revascularization procedures to LLE; HIT; DVT; compartment syndrome, s/p fasciotomies; left groin infection; acute blood loss anemia; gait dysfunction 1. Left groin and lower extremity infection with graft in place. 2. dm2 3. obesity 4. dvt RECOMMENDATION 1. Continue current iv abx. 2. Unable to examine wound today. Will examine wound in am and make recommendations. Past History Past Medical History: diabetes, DVT, hypertension, hyperlipidemia, PVD Past Surgical History: Other (revascularization procedures) Social history: , lives with family ( and children). denies: smoking, alcohol abuse Family history: diabetes, hypertension Medications and Allergies Allergies Allergy/AdvReac Type Severity Reaction Status Date / Time heparin Allergy Severe THROMBOCYTO Verified 09/06/16 10:08 [facility] Home Medications Medication Instructions Recorded Confirmed Last Taken Type Carvedilol [Coreg] 25 mg PO BID 08/23/16 09/28/16 1 Day Ago History Carvedilol [Coreg] 25 mg PO BID tablet 09/10/16 09/28/16 Unknown Rx Clopidogrel [Plavix] 75 mg PO QDAY tablet 09/10/16 09/28/16 Unknown Rx Fenofibrate [Tricor] 145 mg PO QDAY tablet 09/10/16 10/01/16 Unknown Rx Insulin Detemir [Levemir] 45 units SUB-Q QHS units 09/10/16 09/28/16 Unknown Rx Simvastatin [Zocor TAB] 20 mg PO QHS tablet 09/10/16 09/28/16 Unknown Rx Sodium Bicarbonate 650 mg PO BID tablet 09/10/16 09/28/16 Unknown Rx Ascorbic Acid [Vitamin C] 1,000 mg PO BID tablet 09/13/16 09/28/16 Unknown Rx Ferrous Sulfate [Feosol 325 MG tab] 325 mg PO BID tablet 09/13/16 09/28/16 Unknown Rx Insulin Detemir [Levemir] 38 units SUB-Q QHS units 09/13/16 09/28/16 Unknown Rx Warfarin [Coumadin] 5 mg PO DAILY@1700 tablet 09/13/16 09/28/16 Unknown Rx oxyCODONE /ACETAMINOPHEN [Percocet 2 tab PO Q6H PRN #30 tablet 09/13/16 Unknown Rx 5/325 mg] Active Meds: Active Medications Acetaminophen (Tylenol) 650 mg PO Q4H PRN PRN Reason: Pain MILD(1-3)/Fever >100.5/AVILA Last Admin: 09/24/16 22:14 Dose: 650 mg Amlodipine Besylate (Norvasc) 10 mg PO QDAY [facility] Last Admin: 10/02/16 08:28 Dose: 10 mg Ascorbic Acid (Vitamin C) 1,000 mg PO BID [facility] Last Admin: 10/02/16 08:30 Dose: 1,000 mg Bisacodyl (Dulcolax) 10 mg AR QDAY PRN PRN Reason: Constipation unrelieved by MOM Carvedilol (Coreg) 25 mg PO BID [facility] Last Admin: 10/02/16 08:30 Dose: 25 mg Clopidogrel Bisulfate (Plavix) 75 mg PO QDAY [facility] Last Admin: 10/02/16 08:30 Dose: 75 mg Dextrose (D50w (25gm)) 50 ml IV PRN PRN PRN Reason: Hypoglycemia Fenofibrate (Tricor) 145 mg PO QDAY [facility] Last Admin: 10/02/16 08:30 Dose: 145 mg Ferrous Sulfate (Feosol) 325 mg PO BID [facility] Last Admin: 10/02/16 08:29 Dose: 325 mg Levofloxacin/Dextrose (Levaquin 750mg/150ml) 750 mg in 150 mls @ 100 mls/hr IV Q24H [facility] PRN Reason: Protocol Last Admin: 10/02/16 11:20 Dose: 100 mls/hr Vancomycin HCl 2,000 mg/ (Sodium Chloride) 540 mls @ 250 mls/hr IV Q24H [facility] Last Admin: 10/02/16 13:04 Dose: 250 mls/hr Insulin Aspart (Novolog) 0 units SUB-Q ACHS [facility] PRN Reason: Protocol Last Admin: 10/02/16 17:05 Dose: 1 units Insulin Detemir (Levemir) 10 units SUB-Q QHS [facility] Last Admin: 10/01/16 21:18 Dose: 10 units Losartan Potassium (Cozaar) 100 mg PO QDAY [facility] Last Admin: 10/02/16 08:29 Dose: 100 mg Oxycodone/Acetaminophen (Percocet 5/325) 2 tab PO Q4H PRN PRN Reason: Pain, Moderate (4-6) Last Admin: 10/02/16 17:12 Dose: 2 tab Polyethylene Glycol (Miralax 3350) 17 gm PO BID PRN PRN Reason: constipation Promethazine HCl (Phenergan) 12.5 mg PO Q6H PRN PRN Reason: Nausea And Vomiting Last Admin: 09/30/16 13:38 Dose: 12.5 mg Senna (Senokot) 8.6 mg PO Q12H PRN PRN Reason: Laxative Effect Simvastatin (Zocor) 20 mg PO QHS [facility] Last Admin: 10/01/16 21:16 Dose: 20 mg Sodium Bicarbonate (Sodium Bicarbonate) 650 mg PO BID [facility] Last Admin: 10/02/16 08:30 Dose: 650 mg Vancomycin HCl (Vancomycin Pharmacy To Dose) 1 each IV [facility]ULT [facility] PRN Reason: Protocol Warfarin Sodium (Coumadin Pharmacy To Dose) 1 [facility] PRN Reason: Protocol Warfarin Sodium (Coumadin) 4 mg PO DAILY@1700 [facility] Last Admin: 10/02/16 17:05 Dose: 4 mg Physical Examination - Constitutional Vitals: Vital Signs Temp Pulse Resp BP Pulse Ox 98.7 F 72 20 161/69 100 10/02/16 16:00 10/02/16 16:00 10/02/16 16:00 10/02/16 16:00 10/02/16 16:00 Temperature -Last 24 Hours Temperature 98.7 F Temperature 98.8 F Temperature 98.9 F Results - Labs CBC & Chem 7: 09/29/16 05:10 09/30/16 07:25 Labs: Abnormal lab results 10/01/16 10/02/16 10/02/16 Range/Units 20:23 04:54 06:34 PT 27.7 H (12.2-14.9) Sec. INR 2.57 H (0.87-1.13) POC Glucose 163 H 116 H (70-105) 10/02/16 10/02/16 Range/Units 12:05 16:27 PT (12.2-14.9) Sec. INR (0.87-1.13) POC Glucose 128 H 166 H (70-105)
[2016-10-02 20:09] LABS: Basophils % (Auto) 0.4 % (0.0-1.8); Eosinophils % (Auto) 3.9 % (0.0-4.3); Hematocrit 23.9 % (30.3-42.9); Hemoglobin 7.8 gm/dl (10.1-14.3); Mean Corpuscular HGB Conc 32 % (30-34); Mean Corpuscular Hemoglobin 26 pg (28-32); Mean Corpuscular Volume 80 fl (79-97); Platelet Count 495 K/mm3 (140-440); Red Blood Count 2.98 M/mm3 (3.65-5.03); Red Cell Distribution Width 18.3 % (13.2-15.2); White Blood Count 9.3 K/mm3 (4.5-11.0)
[2016-10-02 21:18] LABS: Erythrocyte Sedimentation Rate 67 mm/Hr (0-20)
[2016-10-02] MEDS: ZOCOR PO SCH (21:27)
[2016-10-02] MEDS: LEVEMIR SUB-Q SCH (21:45)
[2016-10-03] MEDS: PERCOCET 5/325 PO PRN ×4 (03:12→20:21)
[2016-10-03 06:03] LABS: INR 2.88 (0.87-1.13)
[2016-10-03] MEDS: VITAMIN C PO SCH ×2 (07:40→21:19)
[2016-10-03] MEDS: SODIUM BICARBONATE PO SCH ×2 (07:42→21:19)
[2016-10-03] MEDS: TRICOR PO SCH (07:43)
[2016-10-03] MEDS: COZAAR PO SCH (07:43)
[2016-10-03] MEDS: PLAVIX PO SCH (07:43)
[2016-10-03] MEDS: COREG PO SCH ×2 (07:44→21:23)
[2016-10-03] MEDS: FEOSOL PO SCH ×2 (07:44→21:20)
[2016-10-03] MEDS: NORVASC PO SCH (07:44)
[2016-10-03] MEDS: NOVOLOG SUB-Q SCH ×4 (07:48→21:24)
--- NOTE | 2016-10-03 09:25 | Progress Note ---
Subjective Date of service: 10/03/16 Principal diagnosis: PVD, athlerosclerosis with rest pain Interval history: patient seen and examined today. no complaint. ID consult appreciated.. no N/V/C /D. had BM yesterday. no fever, no SOB, no CP Objective - Constitutional Vitals: Vital Signs - 12hr 10/02/16 10/03/16 10/03/16 21:30 07:31 07:43 Temperature 99.0 F Pulse Rate 76 80 Pulse Rate [ 80 Right Brachial] Respiratory 18 Rate Blood Pressure 180/80 190/98 Blood Pressure 190/98 [Right Arm] O2 Sat by Pulse 97 Oximetry 10/03/16 07:44 Temperature Pulse Rate 80 Pulse Rate [ Right Brachial] Respiratory Rate Blood Pressure 190/98 Blood Pressure [Right Arm] O2 Sat by Pulse Oximetry - EENT Eyes: EOM intact ENT: hearing intact - Neck Neck: supple - Respiratory Respiratory effort: normal Respiratory: bilateral: CTA - Breasts Breasts: Present: deferred - Cardiovascular Rhythm: regular Heart Sounds: Present: S1 & S2 Extremities: abnormal (wound dressing intact in lower limb) - Gastrointestinal General gastrointestinal: deferred Rectal Exam: deferred - Genitourinary Female genitourinary: Present: deferred - Integumentary Integumentary: Present: clear, warm, dry - Musculoskeletal Musculoskeletal: Present: strength equal bilaterally - Neurologic Neurologic: CNII-XII intact, no focal deficits - Psychiatric Psychiatric: appropriate mood/affect, intact judgment & insight, cooperative - Allied health notes Allied health notes reviewed: nursing, PT, OT FIMS assessment as documented by PT/OT/ST: Grooming Patient cleans teeth/dentures: Yes Patient kumar/brushes hair: Yes Patient washes, rinses and Yes dries face: Patient washes, rinses and Yes dries hands: Patient performs (no make-up/ 4/4 (100%) shaving): Grooming FIM Score 6. Modified [place] (Needs equipment/ device . Extra time.) Toileting Toileting Device Commode over Toilet Patient able to: Adjust clothes before,Clean self,Adjust clothes after Patient able to perform: 3/3 (100%) Toileting FIM Score 5. Supv./Set-Up (Needs stand-by, set-up, applying prosth/orth.) Social interaction/Memory/Problem solving Social Interaction FIM Score 6. Mod. [place] (Mostly appropriate. May need meds. No supv.) Memory FIM Score 6. Modified [place](Mild difficulty remembering people/routines.) Problem Solving FIM Score 5. Supervision (Needs cueing <10% to solve routine problems.) Transfers Mode of Locomotion: Wheelchair Bed/Chair/Wheelchair Transfers 5. Supervision (Needs supv. or set-up for FIM Score sliding board, foot rests.) Toilet Transfers FIM Score 5. Supervision (Needs supervision or cueing.) Patient transferred to: Shower Shower Transfers FIM Score 4. Minimal Assistance (Patient = 75% or more. Needs touching.) Locomotion- Stairs Device used on Stairs Handrail/s Number of Stairs Ascended/ 4 Descended Patient used handrail/support: Yes Stairs FIM Score 2. Maximal Assistance (Patient = 25% or more, 4 - 6 stairs.) Locomotion- walk/wheelchair Most Frequent Mode of Wheelchair Locomotion: Ambulation Distance 92 Walking FIM Score 2. Maximal Assistance (Patient = 25% or more. Minimum of 50 ft.) Wheelchair Propulsion Distance 170 Wheelchair FIM Score 5. Supervision (Minimum 150 ft. supv./cues or 50 ft. independently.) Eating Eating Device Adjusted Table Height Eating FIM Score 7. Complete [place] (Cuts meat, opens containers, regular diet.) Dressing-Upper body Patient retrieves clothing Yes items: Patient applies/removes UE No prosthesis or orthosis: Upper Body Dressing FIM Score 4. Minimal Assistance (Patient = 75% or more. Needs touching.) Dressing-lower body Lower Body Dressing Device Sock Aid Patient retrieves clothing Yes items: Patient applies/removes LE No: n/a prosthesis or orthosis: Lower Body Dressing FIM Score 5. Supv./Set-Up ([place] sets out clothes or applies pros./orth.) - Labs CBC & Chem 7: 10/02/16 19:52 09/30/16 07:25 Labs: Laboratory Results - last 72 hr 09/30/16 09/30/16 09/30/16 11:47 16:10 21:15 WBC RBC Hgb Hct MCV MCH MCHC RDW Plt Count Lymph % (Auto) [place] % (Auto) Eos % (Auto) Baso % (Auto) Lymph # [place] # Eos # Baso # Seg Neutrophils % Seg Neutrophils # ESR PT INR POC Glucose 150 H 112 H 177 H C-Reactive Protein Vancomycin Trough 10/01/16 10/01/16 10/01/16 06:03 06:53 11:00 WBC RBC Hgb Hct MCV MCH MCHC RDW Plt Count Lymph % (Auto) [place] % (Auto) Eos % (Auto) Baso % (Auto) Lymph # [place] # Eos # Baso # Seg Neutrophils % Seg Neutrophils # ESR PT 25.4 H INR 2.30 H POC Glucose 142 H C-Reactive Protein Vancomycin Trough 15.8 10/01/16 10/01/16 10/01/16 11:49 16:37 20:23 WBC RBC Hgb Hct MCV MCH MCHC RDW Plt Count Lymph % (Auto) [place] % (Auto) Eos % (Auto) Baso % (Auto) Lymph # [place] # Eos # Baso # Seg Neutrophils % Seg Neutrophils # ESR PT INR POC Glucose 157 H 187 H 163 H C-Reactive Protein Vancomycin Trough 10/02/16 10/02/16 10/02/16 04:54 06:34 12:05 WBC RBC Hgb Hct MCV MCH MCHC RDW Plt Count Lymph % (Auto) [place] % (Auto) Eos % (Auto) Baso % (Auto) Lymph # [place] # Eos # Baso # Seg Neutrophils % Seg Neutrophils # ESR PT 27.7 H INR 2.57 H POC Glucose 116 H 128 H C-Reactive Protein Vancomycin Trough 10/02/16 10/02/16 10/02/16 16:27 19:52 19:52 WBC 9.3 RBC 2.98 L Hgb 7.8 L Hct 23.9 L MCV 80 MCH 26 L MCHC 32 RDW 18.3 H Plt Count 495 H Lymph % (Auto) 27.5 [place] % (Auto) 7.0 Eos % (Auto) 3.9 Baso % (Auto) 0.4 Lymph # 2.6 [place] # 0.7 Eos # 0.4 Baso # 0.0 Seg Neutrophils % 61.2 Seg Neutrophils # 5.7 ESR 67 PT INR POC Glucose 166 H C-Reactive Protein 1.10 Vancomycin Trough 10/02/16 10/03/16 10/03/16 20:36 05:30 06:19 WBC RBC Hgb Hct MCV MCH MCHC RDW Plt Count Lymph % (Auto) [place] % (Auto) Eos % (Auto) Baso % (Auto) Lymph # [place] # Eos # Baso # Seg Neutrophils % Seg Neutrophils # ESR PT 30.3 H INR 2.88 H POC Glucose 164 H 108 H C-Reactive Protein Vancomycin Trough Assessment and Plan 51 y.o morbidly obese female with PVD, s/p revascularization procedures to LLE; HIT; DVT; compartment syndrome, s/p fasciotomies; left groin infection; acute blood loss anemia; gait dysfunction. doing well with PT/OT. ID consult appreciated - PVD- s/p multiple revasculatization procedures with noted complications; pain improved, maintain on current dose - wound care- wound care nurse following for wound vac care and dressing changes - left groin infection- continue IV ABX; ID f/u appreciated - acute blood loss anemia- continue iron supplementation;Hb. 7.8 improving. no anemic symptom. - HTN- BP around 160-190/70. currently maxed on active BP meds; will request IM consult for better BP control - DM- stable - DVT/HIT positive- coumadin, INR therapeutic - morbid obesity- BMI 47.6 - Patient Problems (1) Atherosclerosis of [place] arteries of the extremities with rest pain Current Visit: No Status: Acute Qualifiers: Peripheral atherosclerosis location: P Laterality: L (2) HIT (heparin-induced thrombocytopenia) Current Visit: No Status: Acute (3) Hypertension Current Visit: Yes Status: Chronic Qualifiers: Hypertension type: essential hypertension Qualified Code(s): I10 - Essential (primary) hypertension (4) Diabetes Current Visit: No Status: Chronic Qualifiers: Diabetes mellitus type: type 2 Diabetes mellitus complication status: with hyperglycemia Diabetes mellitus complication detail: D Diabetic retinopathy severity: D Proliferative retinopathy type: P Diabetes mellitus macular edema: D Diabetes mellitus long-term insulin use: with long-term use Laterality: L Chronic kidney disease stage: C Qualified Code(s): E11.65 - Type 2 diabetes mellitus with hyperglycemia; Z79.4 - senior care (current) use of insulin (5) Unsteady gait Current Visit: Yes Status: Acute (6) Acute blood loss as cause of postoperative anemia Current Visit: Yes Status: Acute (7) Morbid (severe) obesity due to excess calories Current Visit: Yes Status: Acute
[2016-10-03] MEDS: LEVAQUIN 750MG/150ML 750 MG/150 ML BAG IV SCH (09:51)
[2016-10-03] MEDS: VANCOMYCIN 2,000 MG in NACL 0.9% 500 ML 500 ML IV SCH (11:04)
[2016-10-03] MEDS: PHENERGAN PO PRN (12:34)
[2016-10-03] MEDS: COUMADIN PO SCH (16:44)
--- NOTE | 2016-10-03 19:23 | Progress Note ---
Subjective Date of service: 10/03/16 Principal diagnosis: PVD, athlerosclerosis with rest pain Interval history: Patient seen today. No complaints. VS - Afebrile. chest - good air entry cvs - s1s2 abd - bs+ extr - groin wound improved but still draining. Left leg wound noticed swelling around it. labs esr - 67 crp 1.1 ASSESSMENT 1. Left groin and lower extremity infection with graft in place. 2. dm2 3. obesity 4. dvt RECOMMENDATION 1. Continue current iv abx FOR TWO MORE WEEKS. I need be to discharge, then arrange home iv abx (levaquin 750mg iv daily and vancomycin 2g iv twice daily) 2. Home physical therapy. Objective - Constitutional Vitals: Vital Signs Temp Pulse Resp BP Pulse Ox 84 F L 84 18 176/74 98 10/03/16 19:16 10/03/16 19:16 10/03/16 19:16 10/03/16 19:16 10/03/16 19:16 Temperature -Last 24 Hours Temperature 84 F Temperature 99.0 F Temperature 98.9 F - Labs CBC & Chem 7: 10/02/16 19:52 09/30/16 07:25 Labs: Abnormal lab results 10/02/16 10/02/16 10/03/16 Range/Units 19:52 20:36 05:30 RBC 2.98 L (3.65-5.03) M/mm3 Hgb 7.8 L (10.1-14.3) gm/dl Hct 23.9 L (30.3-42.9) % MCH 26 L (28-32) pg RDW 18.3 H (13.2-15.2) % Plt Count 495 H (140-440) K/mm3 PT 30.3 H (12.2-14.9) Sec. INR 2.88 H (0.87-1.13) POC Glucose 164 H (70-105) 10/03/16 10/03/16 10/03/16 Range/Units 06:19 11:50 16:32 RBC (3.65-5.03) M/mm3 Hgb (10.1-14.3) gm/dl Hct (30.3-42.9) % MCH (28-32) pg RDW (13.2-15.2) % Plt Count (140-440) K/mm3 PT (12.2-14.9) Sec. INR (0.87-1.13) POC Glucose 108 H 121 H 128 H (70-105)
--- NOTE | 2016-10-03 19:54 | Consultation ---
History of Present Illness - Reason for Consult Consult date: 10/03/16 HTN control Requesting physician: MARISELA TRAN - History of Present Illness Management of uncontrolled Htn.Patient on 3 anti hypertensives-Losatan 100 mg po qd Coreg 12.5 q 12 and Amlodipine 10 mg po qd. last BP readings were 190/98 and 176/74 .Asymptomatic. Past History Past Medical History: diabetes, DVT, hypertension, hyperlipidemia, PVD Past Surgical History: Other (revascularization procedures) Social history: , lives with family ( and children). denies: smoking, alcohol abuse Family history: diabetes, hypertension Medications and Allergies Allergies Allergy/AdvReac Type Severity Reaction Status Date / Time heparin Allergy Severe THROMBOCYTO Verified 09/06/16 10:08 PENIN Home Medications Medication Instructions Recorded Confirmed Last Taken Type Carvedilol [Coreg] 25 mg PO BID 08/23/16 09/28/16 1 Day Ago History Carvedilol [Coreg] 25 mg PO BID tablet 09/10/16 09/28/16 Unknown Rx Clopidogrel [Plavix] 75 mg PO QDAY tablet 09/10/16 09/28/16 Unknown Rx Fenofibrate [Tricor] 145 mg PO QDAY tablet 09/10/16 10/01/16 Unknown Rx Insulin Detemir [Levemir] 45 units SUB-Q QHS units 09/10/16 09/28/16 Unknown Rx Simvastatin [Zocor TAB] 20 mg PO QHS tablet 09/10/16 09/28/16 Unknown Rx Sodium Bicarbonate 650 mg PO BID tablet 09/10/16 09/28/16 Unknown Rx Ascorbic Acid [Vitamin C] 1,000 mg PO BID tablet 09/13/16 09/28/16 Unknown Rx Ferrous Sulfate [Feosol 325 MG tab] 325 mg PO BID tablet 09/13/16 09/28/16 Unknown Rx Insulin Detemir [Levemir] 38 units SUB-Q QHS units 09/13/16 09/28/16 Unknown Rx Warfarin [Coumadin] 5 mg PO DAILY@1700 tablet 09/13/16 09/28/16 Unknown Rx oxyCODONE /ACETAMINOPHEN [Percocet 2 tab PO Q6H PRN #30 tablet 09/13/16 Unknown Rx 5/325 mg] Active Meds: Active Medications Acetaminophen (Tylenol) 650 mg PO Q4H PRN PRN Reason: Pain MILD(1-3)/Fever >100.5/AVILA Last Admin: 09/24/16 22:14 Dose: 650 mg Amlodipine Besylate (Norvasc) 10 mg PO QDAY [facility] Last Admin: 10/03/16 07:44 Dose: 10 mg Ascorbic Acid (Vitamin C) 1,000 mg PO BID [facility] Last Admin: 10/03/16 07:40 Dose: 1,000 mg Bisacodyl (Dulcolax) 10 mg NE QDAY PRN PRN Reason: Constipation unrelieved by MOM Carvedilol (Coreg) 25 mg PO BID [facility] Last Admin: 10/03/16 07:44 Dose: 25 mg Clopidogrel Bisulfate (Plavix) 75 mg PO QDAY [facility] Last Admin: 10/03/16 07:43 Dose: 75 mg Dextrose (D50w (25gm)) 50 ml IV PRN PRN PRN Reason: Hypoglycemia Fenofibrate (Tricor) 145 mg PO QDAY [facility] Last Admin: 10/03/16 07:43 Dose: 145 mg Ferrous Sulfate (Feosol) 325 mg PO BID [facility] Last Admin: 10/03/16 07:44 Dose: 325 mg Levofloxacin/Dextrose (Levaquin 750mg/150ml) 750 mg in 150 mls @ 100 mls/hr IV Q24H [facility] PRN Reason: Protocol Last Admin: 10/03/16 09:51 Dose: 100 mls/hr Vancomycin HCl 2,000 mg/ (Sodium Chloride) 540 mls @ 250 mls/hr IV Q24H [facility] Last Admin: 10/03/16 11:04 Dose: 250 mls/hr Insulin Aspart (Novolog) 0 units SUB-Q ACHS [facility] PRN Reason: Protocol Last Admin: 10/03/16 16:41 Dose: Not Given Insulin Detemir (Levemir) 10 units SUB-Q QHS [facility] Last Admin: 10/02/16 21:45 Dose: 10 units Losartan Potassium (Cozaar) 100 mg PO QDAY [facility] Last Admin: 10/03/16 07:43 Dose: 100 mg Oxycodone/Acetaminophen (Percocet 5/325) 2 tab PO Q4H PRN PRN Reason: Pain, Moderate (4-6) Last Admin: 10/03/16 14:16 Dose: 2 tab Polyethylene Glycol (Miralax 3350) 17 gm PO BID PRN PRN Reason: constipation Promethazine HCl (Phenergan) 12.5 mg PO Q6H PRN PRN Reason: Nausea And Vomiting Last Admin: 10/03/16 12:34 Dose: 12.5 mg Senna (Senokot) 8.6 mg PO Q12H PRN PRN Reason: Laxative Effect Simvastatin (Zocor) 20 mg PO QHS [facility] Last Admin: 10/02/16 21:27 Dose: 20 mg Sodium Bicarbonate (Sodium Bicarbonate) 650 mg PO BID [facility] Last Admin: 10/03/16 07:42 Dose: 650 mg Vancomycin HCl (Vancomycin Pharmacy To Dose) 1 each IV PKCONSULT [facility] PRN Reason: Protocol Warfarin Sodium (Coumadin [facility] Dose) [facility] PRN Reason: Protocol Warfarin Sodium (Coumadin) 4 mg PO DAILY@1700 [facility] Last Admin: 10/03/16 16:44 Dose: 4 mg Review of Systems All systems: negative Exam - Constitutional Vitals: Temp Pulse Resp BP Pulse Ox 84 F L 84 18 176/74 98 10/03/16 19:16 10/03/16 19:16 10/03/16 19:16 10/03/16 19:16 10/03/16 19:16 General appearance: Present: no acute distress, well-nourished - EENT Eyes: Present: PERRL ENT: hearing intact, clear oral mucosa - Neck Neck: Present: supple, normal ROM - Respiratory Respiratory effort: normal Respiratory: bilateral: CTA - Cardiovascular Heart Sounds: Present: S1 & S2. Absent: rub, click - Extremities Extremities: pulses symmetrical, No edema Peripheral Pulses: within normal limits - Abdominal General gastrointestinal: Present: soft, non-tender, non-distended, normal bowel sounds Female genitourinary: Present: normal - Integumentary Integumentary: Present: clear, warm, dry - Musculoskeletal Musculoskeletal: gait normal, strength equal bilaterally - Psychiatric Psychiatric: appropriate mood/affect, intact judgment & insight - Neurologic Neurologic: CNII-XII intact, moves all extremities Results - Labs CBC & Chem 7: 10/02/16 19:52 09/30/16 07:25 Labs: Abnormal lab results 10/02/16 10/02/16 10/03/16 Range/Units 19:52 20:36 05:30 RBC 2.98 L (3.65-5.03) M/mm3 Hgb 7.8 L (10.1-14.3) gm/dl Hct 23.9 L (30.3-42.9) % MCH 26 L (28-32) pg RDW 18.3 H (13.2-15.2) % Plt Count 495 H (140-440) K/mm3 PT 30.3 H (12.2-14.9) Sec. INR 2.88 H (0.87-1.13) POC Glucose 164 H (70-105) 10/03/16 10/03/16 10/03/16 Range/Units 06:19 11:50 16:32 RBC (3.65-5.03) M/mm3 Hgb (10.1-14.3) gm/dl Hct (30.3-42.9) % MCH (28-32) pg RDW (13.2-15.2) % Plt Count (140-440) K/mm3 PT (12.2-14.9) Sec. INR (0.87-1.13) POC Glucose 108 H 121 H 128 H (70-105) Assessment and Plan - Patient Problems (1) Hypertension, uncontrolled Current Visit: Yes Status: Acute Plan to address problem: Patient is already on losartan 100 mg once a day Coreg 25 mg twice a day and amlodipine 10 mg once a day. Repeat blood pressure being 1 [id number] Will and only hydrochlorothiazide 25 mg once a day along with potassium . Team four hospitalist group to adjust medications if necessary. (2) IDDM (insulin dependent diabetes mellitus) Current Visit: Yes Status: Chronic Plan to address problem: Continue insulin coverage. (3) Peripheral vascular disease Current Visit: Yes Status: Chronic Plan to address problem: Patient on Plavix. Continue same (4) Hyperlipidemia Current Visit: Yes Status: Chronic Qualifiers: Hyperlipidemia type: mixed hyperlipidemia Qualified Code(s): E78.2 - Mixed hyperlipidemia Plan to address problem: Continue statins. (5) DVT prophylaxis Current Visit: Yes Status: Chronic Plan to address problem: Continue SCDs and Lovenox.
[2016-10-03] MEDS ORDERED: K-DUR PO ONE (20:04)
[2016-10-03] MEDS: ZOCOR PO SCH (20:21)
[2016-10-03] MEDS ORDERED: KLOR-CON 8 PO ONE (21:00)
[2016-10-03] MEDS: LEVEMIR SUB-Q SCH (21:25)
[2016-10-04] MEDS: PERCOCET 5/325 PO PRN ×5 (00:36→22:14)
[2016-10-04 05:34] LABS: Basophils % (Auto) 0.5 % (0.0-1.8); Eosinophils % (Auto) 3.6 % (0.0-4.3); Hematocrit 22.6 % (30.3-42.9); Hemoglobin 7.4 gm/dl (10.1-14.3); Mean Corpuscular HGB Conc 33 % (30-34); Mean Corpuscular Hemoglobin 26 pg (28-32); Mean Corpuscular Volume 80 fl (79-97); Platelet Count 456 K/mm3 (140-440); Red Blood Count 2.82 M/mm3 (3.65-5.03); Red Cell Distribution Width 18.3 % (13.2-15.2); White Blood Count 7.7 K/mm3 (4.5-11.0)
[2016-10-04 05:45] LABS: INR 3.26 (0.87-1.13)
[2016-10-04 06:36] LABS: Anion Gap 13 mmol/L; BUN/Creatinine Ratio 5.45; Blood Urea Nitrogen 6 mg/dL (7-17); Calcium 7.9 mg/dL (8.4-10.2); Carbon Dioxide 26 mmol/L (22-30); Chloride 106.7 mmol/L (98-107); Glucose 102 mg/dL (65-100); Potassium 3.4 mmol/L (3.6-5.0); Sodium 142 mmol/L (137-145)
[2016-10-04] MEDS: PLAVIX PO SCH (08:25)
[2016-10-04] MEDS: SODIUM BICARBONATE PO SCH ×2 (08:25→22:09)
[2016-10-04] MEDS: FEOSOL PO SCH ×2 (08:25→22:09)
[2016-10-04] MEDS: HCTZ PO SCH (08:26)
[2016-10-04] MEDS: VITAMIN C PO SCH ×2 (08:26→22:08)
[2016-10-04] MEDS: NORVASC PO SCH (08:26)
[2016-10-04] MEDS: COREG PO SCH ×2 (08:26→22:11)
[2016-10-04] MEDS: TRICOR PO SCH (08:26)
[2016-10-04] MEDS: NOVOLOG SUB-Q SCH ×4 (08:27→22:10)
[2016-10-04] MEDS: COZAAR PO SCH (08:27)
[2016-10-04] MEDS: LEVAQUIN 750MG/150ML 750 MG/150 ML BAG IV SCH (09:15)
[2016-10-04] MEDS: PHENERGAN PO PRN (09:15)
[2016-10-04] MEDS ORDERED: CATAPRES PO SCH (10:00)
--- NOTE | 2016-10-04 11:29 | Progress Note ---
Assessment and Plan 51 y.o morbidly obese female with PVD, s/p revascularization procedures to LLE; HIT; DVT; compartment syndrome, s/p fasciotomies; left groin infection; acute blood loss anemia; gait dysfunction - PVD- s/p multiple revasculatization procedures with noted complications; pain stable - wound care- wound care nurse following for wound vac care and dressing changes - left groin infection- continue IV ABX x 2 more weeks per ID - acute blood loss anemia- continue iron supplementation; H/H stable - HTN- continues with fluctuating blood pressure; appreciate IM consult, HCTZ added - DM- stable - DVT/HIT positive- coumadin, INR supratherapeutic on today, pharmacy decreasing today's dose to 3mg from 4mg - morbid obesity- BMI 47.6 - family training held on today with ; tentative d/c home on tomorrow - Patient Problems (1) Atherosclerosis of [place] arteries of the extremities with rest pain Current Visit: No Status: Acute Qualifiers: Peripheral atherosclerosis location: P Laterality: L (2) Infection of vascular bypass graft Current Visit: Yes Status: Acute Qualifiers: Encounter type: initial encounter Qualified Code(s): T82.7XXA - Infection and inflammatory reaction due to other cardiac and vascular devices, implants and grafts, initial encounter (3) Unsteady gait Current Visit: Yes Status: Acute (4) Acute blood loss as cause of postoperative anemia Current Visit: Yes Status: Acute (5) Diabetes Current Visit: No Status: Chronic Qualifiers: Diabetes mellitus type: type 2 Diabetes mellitus complication status: with hyperglycemia Diabetes mellitus complication detail: D Diabetic retinopathy severity: D Proliferative retinopathy type: P Diabetes mellitus macular edema: D Diabetes mellitus petroleum terminal plant operator insulin use: with petroleum terminal plant operator use Laterality: L Chronic kidney disease stage: C Qualified Code(s): E11.65 - Type 2 diabetes mellitus with hyperglycemia; Z79.4 - petroleum terminal plant operator (current) use of insulin (6) Hypertension Current Visit: Yes Status: Deleted Qualifiers: Hypertension type: essential hypertension Qualified Code(s): I10 - Essential (primary) hypertension (7) Morbid (severe) obesity due to excess calories Current Visit: Yes Status: Acute Subjective Date of service: 10/04/16 Principal diagnosis: PVD, athlerosclerosis with rest pain Interval history: Pt seen in room this AM, F/U IPR course, PVD, left groin infection. Pain levels reported as 4/10 this AM; continues with intermittently severely elevated BP; Hospitalist consulted on yesterday Objective - Constitutional Vitals: Vital Signs - 12hr 10/04/16 10/04/16 10/04/16 07:30 08:26 08:27 Temperature 98.5 F Pulse Rate 78 78 Pulse Rate [ 78 Right Brachial] Respiratory 20 Rate Blood Pressure 165/78 165/78 Blood Pressure 165/78 [Right Arm] O2 Sat by Pulse 98 Oximetry 10/04/16 10/04/16 10:16 10:23 Temperature Pulse Rate 80 Pulse Rate [ Right Brachial] Respiratory 20 Rate Blood Pressure 194/85 Blood Pressure [Right Arm] O2 Sat by Pulse Oximetry General appearance: Present: no acute distress, obese - EENT Eyes: EOM intact ENT: hearing intact - Neck Neck: supple, normal ROM - Respiratory Respiratory effort: normal Respiratory: bilateral: CTA - Cardiovascular Rhythm: regular Heart Sounds: Present: S1 & S2 Extremity abnormal: edema (slightly improved at LLE), other (dressing and wound vac to E) - Gastrointestinal General gastrointestinal: Present: soft, non-tender, non-distended, normal bowel sounds - Musculoskeletal Musculoskeletal: left sided weakness - Neurologic Neurologic: CNII-XII intact, moves all extremities - Psychiatric Psychiatric: appropriate mood/affect, intact judgment & insight, memory intact, cooperative - Allied health notes Allied health notes reviewed: PT (Oscar for transfers; supervision for curbs, gait 95 feet with RW, stairs), OT (Oscar for toileting, SPT, UB Dressing; SBA for toilet transfers) - Labs CBC & Chem 7: 10/04/16 05:20 10/04/16 05:20 Labs: Abnormal lab results 10/03/16 10/03/16 10/03/16 Range/Units 11:50 16:32 20:39 RBC (3.65-5.03) M/mm3 Hgb (10.1-14.3) gm/dl Hct (30.3-42.9) % MCH (28-32) pg RDW (13.2-15.2) % Plt Count (140-440) K/mm3 [place] % (Auto) (0.0-7.3) % PT (12.2-14.9) Sec. INR (0.87-1.13) Potassium (3.6-5.0) mmol/L BUN (7-17) mg/dL Glucose (65-100) mg/dL POC Glucose 121 H 128 H 166 H (70-105) Calcium (8.4-10.2) mg/dL 10/04/16 10/04/16 10/04/16 Range/Units 05:20 05:20 05:20 RBC 2.82 L (3.65-5.03) M/mm3 Hgb 7.4 L (10.1-14.3) gm/dl Hct 22.6 L (30.3-42.9) % MCH 26 L (28-32) pg RDW 18.3 H (13.2-15.2) % Plt Count 456 H (140-440) K/mm3 [place] % (Auto) 8.3 H (0.0-7.3) % PT 33.5 H (12.2-14.9) Sec. INR 3.26 H (0.87-1.13) Potassium 3.4 L (3.6-5.0) mmol/L BUN 6 L (7-17) mg/dL Glucose 102 H (65-100) mg/dL POC Glucose (70-105) Calcium 7.9 L (8.4-10.2) mg/dL 10/04/16 Range/Units 05:30 RBC (3.65-5.03) M/mm3 Hgb (10.1-14.3) gm/dl Hct (30.3-42.9) % MCH (28-32) pg RDW (13.2-15.2) % Plt Count (140-440) K/mm3 [place] % (Auto) (0.0-7.3) % PT (12.2-14.9) Sec. INR (0.87-1.13) Potassium (3.6-5.0) mmol/L BUN (7-17) mg/dL Glucose (65-100) mg/dL POC Glucose 107 H (70-105) Calcium (8.4-10.2) mg/dL
[2016-10-04] MEDS: VANCOMYCIN 2,000 MG in NACL 0.9% 500 ML 500 ML IV SCH (13:06)
--- NOTE | 2016-10-04 14:49 | Progress Note ---
Assessment and Plan Assessment and plan: 1. HTN - BP still uncontrolled despite being on multiple meds - History Interval history: doing well, resting after working with PT Hospitalist Physical - Constitutional Vitals: Temp Pulse Resp BP Pulse Ox 98.5 F 72 18 154/71 98 10/04/16 07:30 10/04/16 12:30 10/04/16 11:16 10/04/16 12:30 10/04/16 07:30 General appearance: Present: no acute distress, obese - EENT Eyes: Present: PERRL, EOM intact - Neck Neck: Present: supple, normal ROM. Absent: masses or JVD - Respiratory Respiratory effort: normal Respiratory: bilateral: CTA, negative: rhonchi, wheezing - Cardiovascular Rhythm: regular Heart Sounds: Present: S1 & S2. Absent: systolic murmur - Extremities Extremities: no ischemia - Abdominal General gastrointestinal: soft, non-tender, non-distended, normal bowel sounds - Integumentary Integumentary: Present: warm, dry. Absent: jaundice, rash - Psychiatric Psychiatric: cooperative - Neurologic Neurologic: CNII-XII intact, moves all extremities Results - Labs CBC & Chem 7: 10/04/16 05:20 10/04/16 05:20 Labs: Laboratory Last Values WBC 7.7 K/mm3 (4.5-11.0) 10/04/16 05:20 RBC 2.82 M/mm3 (3.65-5.03) L 10/04/16 05:20 Hgb 7.4 gm/dl (10.1-14.3) L 10/04/16 05:20 Hct 22.6 % (30.3-42.9) L 10/04/16 05:20 MCV 80 fl (79-97) 10/04/16 05:20 MCH 26 pg (28-32) L 10/04/16 05:20 MCHC 33 % (30-34) 10/04/16 05:20 RDW 18.3 % (13.2-15.2) H 10/04/16 05:20 Plt Count 456 K/mm3 (140-440) H 10/04/16 05:20 Lymph % (Auto) 33.7 % (13.4-35.0) 10/04/16 05:20 [place] % (Auto) 8.3 % (0.0-7.3) H 10/04/16 05:20 Eos % (Auto) 3.6 % (0.0-4.3) 10/04/16 05:20 Baso % (Auto) 0.5 % (0.0-1.8) 10/04/16 05:20 Lymph # 2.6 K/mm3 (1.2-5.4) 10/04/16 05:20 [place] # 0.6 K/mm3 (0.0-0.8) 10/04/16 05:20 Eos # 0.3 K/mm3 (0.0-0.4) 10/04/16 05:20 Baso # 0.0 K/mm3 (0.0-0.1) 10/04/16 05:20 Seg Neutrophils % 53.9 % (40.0-70.0) 10/04/16 05:20 Seg Neutrophils # 4.1 K/mm3 (1.8-7.7) 10/04/16 05:20 ESR 67 mm/Hr (0-20) 10/02/16 19:52 PT 33.5 Sec. (12.2-14.9) H 10/04/16 05:20 INR 3.26 (0.87-1.13) H 10/04/16 05:20 Sodium 142 mmol/L (137-145) 10/04/16 05:20 Potassium 3.4 mmol/L (3.6-5.0) L 10/04/16 05:20 Chloride 106.7 mmol/L (98-107) 10/04/16 05:20 Carbon Dioxide 26 mmol/L (22-30) 10/04/16 05:20 Anion Gap 13 mmol/L 10/04/16 05:20 BUN 6 mg/dL (7-17) L 10/04/16 05:20 Creatinine 1.1 mg/dL (0.7-1.2) 10/04/16 05:20 Estimated GFR > 60 ml/min 10/04/16 05:20 BUN/Creatinine Ratio 5.45 % 10/04/16 05:20 Glucose 102 mg/dL (65-100) H 10/04/16 05:20 POC Glucose 196 (70-105) H 10/04/16 13:01 Calcium 7.9 mg/dL (8.4-10.2) L 10/04/16 05:20 Total Bilirubin < 0.2 mg/dL (0.1-1.2) 09/25/16 04:45 AST 14 units/L (5-40) 09/25/16 04:45 ALT < 5 units/L (7-56) L 09/25/16 04:45 Alkaline Phosphatase 41 units/L (35-129) 09/25/16 04:45 C-Reactive Protein 1.10 mg/dL (0.00-1.30) 10/02/16 19:52 Total Protein 5.4 g/dL (6.3-8.2) L 09/25/16 04:45 Albumin 2.3 g/dL (3.9-5) L 09/25/16 04:45 Albumin/Globulin Ratio 0.7 % 09/25/16 04:45 Vancomycin Trough 15.8 ug/mL (5.0-20.0) 10/01/16 11:00 Random Vancomycin 16.5 ug/mL (0-40.0) 09/28/16 Unknown
[2016-10-04] MEDS ORDERED: COUMADIN PO SCH (17:00)
[2016-10-04] MEDS: ZOCOR PO SCH (22:08)
[2016-10-04] MEDS: CATAPRES PO SCH (22:09)
[2016-10-04] MEDS: LEVEMIR SUB-Q SCH (22:18)
[2016-10-05] MEDS: PERCOCET 5/325 PO PRN ×2 (03:56→13:25)
[2016-10-05 05:17] LABS: INR 3.24 (0.87-1.13)
[2016-10-05] MEDS: CATAPRES PO SCH ×2 (06:17→14:13)
[2016-10-05] MEDS: VITAMIN C PO SCH (08:58)
[2016-10-05] MEDS: NOVOLOG SUB-Q SCH ×2 (08:58→11:30)
[2016-10-05] MEDS: PLAVIX PO SCH (08:58)
[2016-10-05] MEDS: TRICOR PO SCH (08:59)
[2016-10-05] MEDS: SODIUM BICARBONATE PO SCH (08:59)
[2016-10-05] MEDS: COZAAR PO SCH (09:00)
[2016-10-05] MEDS: FEOSOL PO SCH (09:01)
[2016-10-05] MEDS: NORVASC PO SCH (09:01)
[2016-10-05] MEDS: HCTZ PO SCH (09:02)
[2016-10-05] MEDS: COREG PO SCH (09:02)
--- NOTE | 2016-10-05 09:55 | Progress Note ---
Assessment and Plan Assessment and plan: 1. HTN - BP better controlled after changing Clonidine to TID History Interval history: no specific complaints Hospitalist Physical - Constitutional Vitals: Temp Pulse Resp BP Pulse Ox 98.8 F 70 20 147/70 99 10/05/16 08:00 10/05/16 09:01 10/05/16 08:00 10/05/16 09:01 10/05/16 08:00 General appearance: Present: no acute distress, obese Results - Labs CBC & Chem 7: 10/04/16 05:20 10/04/16 05:20 Labs: Laboratory Last Values WBC 7.7 K/mm3 (4.5-11.0) 10/04/16 05:20 RBC 2.82 M/mm3 (3.65-5.03) L 10/04/16 05:20 Hgb 7.4 gm/dl (10.1-14.3) L 10/04/16 05:20 Hct 22.6 % (30.3-42.9) L 10/04/16 05:20 MCV 80 fl (79-97) 10/04/16 05:20 MCH 26 pg (28-32) L 10/04/16 05:20 MCHC 33 % (30-34) 10/04/16 05:20 RDW 18.3 % (13.2-15.2) H 10/04/16 05:20 Plt Count 456 K/mm3 (140-440) H 10/04/16 05:20 Lymph % (Auto) 33.7 % (13.4-35.0) 10/04/16 05:20 [place] % (Auto) 8.3 % (0.0-7.3) H 10/04/16 05:20 Eos % (Auto) 3.6 % (0.0-4.3) 10/04/16 05:20 Baso % (Auto) 0.5 % (0.0-1.8) 10/04/16 05:20 Lymph # 2.6 K/mm3 (1.2-5.4) 10/04/16 05:20 [place] # 0.6 K/mm3 (0.0-0.8) 10/04/16 05:20 Eos # 0.3 K/mm3 (0.0-0.4) 10/04/16 05:20 Baso # 0.0 K/mm3 (0.0-0.1) 10/04/16 05:20 Seg Neutrophils % 53.9 % (40.0-70.0) 10/04/16 05:20 Seg Neutrophils # 4.1 K/mm3 (1.8-7.7) 10/04/16 05:20 ESR 67 mm/Hr (0-20) 10/02/16 19:52 PT 33.3 Sec. (12.2-14.9) H 10/05/16 05:00 INR 3.24 (0.87-1.13) H 10/05/16 05:00 Sodium 142 mmol/L (137-145) 10/04/16 05:20 Potassium 3.4 mmol/L (3.6-5.0) L 10/04/16 05:20 Chloride 106.7 mmol/L (98-107) 10/04/16 05:20 Carbon Dioxide 26 mmol/L (22-30) 10/04/16 05:20 Anion Gap 13 mmol/L 10/04/16 05:20 BUN 6 mg/dL (7-17) L 10/04/16 05:20 Creatinine 1.1 mg/dL (0.7-1.2) 10/04/16 05:20 Estimated GFR > 60 ml/min 10/04/16 05:20 BUN/Creatinine Ratio 5.45 % 10/04/16 05:20 Glucose 102 mg/dL (65-100) H 10/04/16 05:20 POC Glucose 184 (70-105) H 10/05/16 06:10 Calcium 7.9 mg/dL (8.4-10.2) L 10/04/16 05:20 Total Bilirubin < 0.2 mg/dL (0.1-1.2) 09/25/16 04:45 AST 14 units/L (5-40) 09/25/16 04:45 ALT < 5 units/L (7-56) L 09/25/16 04:45 Alkaline Phosphatase 41 units/L (35-129) 09/25/16 04:45 C-Reactive Protein 1.10 mg/dL (0.00-1.30) 10/02/16 19:52 Total Protein 5.4 g/dL (6.3-8.2) L 09/25/16 04:45 Albumin 2.3 g/dL (3.9-5) L 09/25/16 04:45 Albumin/Globulin Ratio 0.7 % 09/25/16 04:45 Vancomycin Trough 15.8 ug/mL (5.0-20.0) 10/01/16 11:00 Random Vancomycin 16.5 ug/mL (0-40.0) 09/28/16 Unknown
[2016-10-05] MEDS: LEVAQUIN 750MG/150ML 750 MG/150 ML BAG IV SCH (10:11)
--- NOTE | 2016-10-05 11:26 | Discharge Summary ---
Providers - Providers Date of Admission: 09/24/16 16:00 Date of discharge: 10/05/16 Attending physician: MARISELA TRAN 09/24/16 17:23 Consult to Wound/ET Nurse [CONS] Routine Reason For Exam: wound vac management Occupational Therapy Evaluate and Treat [CONS] Routine Comment: Reason For Exam: PVD, gait dysfunction Physical Therapy Evaluation and Treat [CONS] Routine Comment: Reason For Exam: PVD, gait dysfunction 09/30/16 20:24 Consult to Physician [CONS] Routine Consulting Provider: ALBERT CORTEZ Reason For Exam: ID CONSULT FOR IV ANTIBIOTIC DURATION Place consult to:: DR DIEGO PRICE Notified:: ANSWERING SERVICE Phone number called:: [phone] Was contact made?: Yes If yes, spoke with:: LAKSHMI Riojas called:: 20:30 10/03/16 09:26 Consult to Physician [CONS] Routine Consulting Provider: HOPE GUZMAN [facility] Reason For Exam: uncontrolled HTN Place consult to:: hospitalist Notified:: Dr Campa Phone number called:: [phone] Was contact made?: Yes If yes, spoke with:: Dr Campa Time called:: 12:45 Comment:: Dr Crocker will see pt Primary care physician: SHRUTI RICHARDSON Hospitalization Reason for admission: Atherosclerosis of extremities Condition: Stable Hospital course: 51 y.o. female with PVD and associated rest pain previously admitted to IRU following acute care course from 08/23/16-09/13/2016. During initial admission, pt found to have an occlusion of the common femoral, left external iliac profundus and SFA arteries; required left femoral thrombectomy and left femoral to below knee bypass; IVC filter. 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 Once stable, pt was noted to have functional deficits and was admitted to IRU for aggressive therapies and ongoing medical management. Unfortunately, pt was noted to have developed a left groin infection during rehab course; transferred back to acute care on 09/16/2016. Pt underwent further revascularization to LLE; left groin washout with sartorius muscle flap; wound vac placement; initiation of IV ABX. Pt also required treatment for uncontrolled hypertension; s/p 2U pRBCs to address anemia. Once stable, pt was again admitted to IRU to resume therapies. Pt tolerated course well; H/H remained stable. Blood pressure was uncontrolled; IM consulted, improved prior to discharge. Pain improved after modification on intervals. Functionally, pt showed very good progress. On admission, pt required modA for transfers and gait 70 feet with RW; Angelia for shower/toilet transfers, toileting, LB dressing; supervision for grooming and UB dressing; Oscar for eating. At the time of discharge, pt has progressed to Oscar for bed mobility, transfers, gait 100 feet with RW, wheelchair mobility, stairs, grooming, bathing, UB dressing, toileting; SBA for LB dressing, toilet transfers, shower transfers; independent with eating. Family training was completed prior to discharge with . >30 mins spent on discharge process, medication reconciliation, pt education, F/ U appts Disposition: DC/TX HOME UNDER HOME HEALTH - Discharge Diagnoses (1) Atherosclerosis of [place] arteries of the extremities with rest pain Status: Acute Qualifiers: Peripheral atherosclerosis location: lower extremity Laterality: left Qualified Code(s): I70.222 - Atherosclerosis of [place] arteries of extremities with rest pain, left leg (2) Infection of vascular bypass graft Status: Acute Qualifiers: Encounter type: initial encounter Qualified Code(s): T82.7XXA - Infection and inflammatory reaction due to other cardiac and vascular devices, implants and grafts, initial encounter (3) Unsteady gait Status: Acute (4) Acute blood loss as cause of postoperative anemia Status: Acute (5) Diabetes Status: Chronic Qualifiers: Diabetes mellitus type: type 2 Diabetes mellitus complication status: with hyperglycemia Diabetes mellitus complication detail: D Diabetic retinopathy severity: D Proliferative retinopathy type: P Diabetes mellitus macular edema: D Diabetes mellitus alf insulin use: with alf use Laterality: L Chronic kidney disease stage: C Qualified Code(s): E11.65 - Type 2 diabetes mellitus with hyperglycemia; Z79.4 - long term care pharmacist (current) use of insulin (6) Hypertension Status: Chronic Qualifiers: Hypertension type: essential hypertension Qualified Code(s): I10 - Essential (primary) hypertension (7) Morbid (severe) obesity due to excess calories Status: Acute Core Measure Documentation - Palliative Care Palliative Care/ Comfort Measures: Not Applicable - Core Measures Any of the following diagnoses?: DVT/PE - VTE Discharge Requirements Deep Vein Thrombosis/Pulmonary Embolism Present on Admission: Yes Has pt received <5 days of overlap therapy or INR<2.0: No Anticoagulant overlap therapy prescribed at discharge: No Contraindication No Overlap Therapy order at DC: Not Indicated (therapeutic on coumadin) Exam - Constitutional Vitals: Temp Pulse Resp BP Pulse Ox 98.8 F 70 20 147/70 99 10/05/16 08:00 10/05/16 09:01 10/05/16 08:00 10/05/16 09:01 10/05/16 08:00 General appearance: Present: no acute distress, obese - EENT Eyes: Present: EOM intact ENT: hearing intact - Neck Neck: Present: supple, normal ROM - Respiratory Respiratory effort: normal - Extremities Extremity abnormal: other (wound vac) - Psychiatric Psychiatric: appropriate mood/affect, cooperative - Neurologic Neurologic: CNII-XII intact, moves all extremities Plan Activity: no driving until cleared by PCP, fall precautions Weight Bearing Status: Full Weight Bearing Diet: low salt, diabetic Wound: per wound nurse instructions Special Instructions: record daily BP diary, record blood sugar diary, physical therapy, occupational therapy, home health RN [email or web address] other ([facility] for IV ABX) Durable Medical Equipment Needed Upon Discharge: Walker-Rolling, Wheelchair, Bedside Commode, other (tub bench; [facility]) Additional Instructions: home health nurse to obtain INR MWF and call to Heme/ Onc, Dr. Dominique, for dosing Follow up with: SHRUTI PEREA MD [Primary Care Provider] - 7 Days ALBERT CORTEZ MD [Staff Physician] - 7 Days AIDEE SARABIA MD [Staff Physician] - 7 Days DANIEL HARTLEY MD [Staff Physician] - 7 Days ELISEO DOMINIQUE MD [Staff Physician] - 7 Days Prescriptions: Insulin Detemir [Levemir] 10 units SUB-Q QHS 30 Days Simvastatin [Zocor TAB] 20 mg PO QHS #30 tablet amLODIPine [Norvasc] 10 mg PO QDAY #30 tablet Carvedilol [Coreg] 25 mg PO BID #60 tablet cloNIDine [Catapres] 0.2 mg PO Q8HR #90 tablet Clopidogrel [Plavix] 75 mg PO QDAY #30 tablet Fenofibrate [Tricor] 145 mg PO QDAY #30 tablet Ferrous Sulfate [Feosol 325 MG tab] 325 mg PO BID #60 tablet Hydrochlorothiazide [HCTZ] 25 mg PO QDAY #30 tablet Levofloxacin 750Mg/150Ml [Levaquin IV PREMIX] 750 mg IV QDAY 14 Days Losartan [Cozaar] 100 mg PO QDAY #30 tablet oxyCODONE /ACETAMINOPHEN [Percocet 5/325 mg] 2 tab PO Q4H PRN #60 tablet PRN Reason: Pain, Moderate (4-6) Sodium Bicarbonate 650 mg PO BID #60 tablet Vancomycin 2,000 mg IV Q24H 14 Days Warfarin [Coumadin] 3 mg PO DAILY@1700 #30 tablet
[2016-10-05] MEDS: VANCOMYCIN 2,000 MG in NACL 0.9% 500 ML 500 ML IV SCH (11:58)
[2016-10-05 14:21] VITALS: BP 150/77
== END 2016-10-05 16:36 | disposition home health service (06) | DRG 315 ==
LOC: 3B 16:00
PROVIDERS: ADMIT Family Medicine; ATTEND Family Medicine
DX: T82.7XXA Infection and inflammatory reaction due to other cardiac and vascular devices, implants and grafts, initial encounter (principal); D62 Acute posthemorrhagic anemia; Z68.42 Body mass index [BMI] 45.0-49.9, adult; I70.229 Atherosclerosis of native arteries of extremities with rest pain, unspecified extremity; E66.01 Morbid (severe) obesity due to excess calories; I10 Essential (primary) hypertension; E11.65 Type 2 diabetes mellitus with hyperglycemia; E78.2 Mixed hyperlipidemia; R26.9 Unspecified abnormalities of gait and mobility; Z88.8 Allergy status to other drugs, medicaments and biological substances; Z86.718 Personal history of other venous thrombosis and embolism; Z83.3 Family history of diabetes mellitus; Z82.49 Family history of ischemic heart disease and other diseases of the circulatory system; Z79.4 Long term (current) use of insulin
CPT/HCPCS: 36415; 80048; 80053; 80202; 82565; 82962; 85014; 85018; 85025; 85027; 85610; 85652; 86140; J1815; J1818; J1956; J3370; J7040; Q0169

== ENCOUNTER 2016-10-19 09:54 | Outpatient (CLI) | payer MEDICARE | END 2016-10-19 09:55 | disposition home or self-care (01) | LOC: WOUND 09:54 | PROVIDERS: ATTEND Surgery | DX: T81.89XD Other complications of procedures, not elsewhere classified, subsequent encounter (principal); E11.9 Type 2 diabetes mellitus without complications; I51.7 Cardiomegaly; I73.9 Peripheral vascular disease, unspecified; Z86.73 Personal history of transient ischemic attack (TIA), and cerebral infarction without residual deficits; Z86.718 Personal history of other venous thrombosis and embolism; Z87.891 Personal history of nicotine dependence; Y83.8 Other surgical procedures as the cause of abnormal reaction of the patient, or of later complication, without mention of misadventure at the time of the procedure | CPT/HCPCS: 99214; G0463 ==

== ENCOUNTER 2016-10-29 18:19 | Emergency (ER) | payer MEDICARE ==
[2016-10-29 18:55] VITALS: BP 152/78
--- NOTE | 2016-10-29 21:13 | Emergency Department Report ---
ED General Adult HPI - General Chief complaint: Skin/Abscess/Foreign Body Stated complaint: IV REMOVED Time Seen by Provider: 10/29/16 20:31 Source: patient Mode of arrival: Wheelchair Limitations: No Limitations - History of Present Illness Initial comments: Patient comes in the ER today asking to have her central line removed from her left arm. Patient has had this IV in place ever since being discharged from the hospital on 10/05/16. Patient has been getting IV antibiotics and states that her last dose of antibiotics was one week ago. A nurse told her that she needs get this taken out and that's why she came here. Patient states that she has an appointment to see wound care on 11/02/16. Patient denies any pain, redness, problems with the IV. Associated Symptoms: denies other symptoms. denies: fever/chills - Related Data Previous Rx's Medication Instructions Recorded Last Taken Type Ascorbic Acid [Vitamin C] 1,000 mg PO BID tablet 09/13/16 Unknown Rx Carvedilol [Coreg] 25 mg PO BID #60 tablet 10/05/16 Unknown Rx Clopidogrel [Plavix] 75 mg PO QDAY #30 tablet 10/05/16 Unknown Rx Fenofibrate [Tricor] 145 mg PO QDAY #30 tablet 10/05/16 Unknown Rx Ferrous Sulfate [Feosol 325 MG tab] 325 mg PO BID #60 tablet 10/05/16 Unknown Rx Hydrochlorothiazide [HCTZ] 25 mg PO QDAY #30 tablet 10/05/16 Unknown Rx Insulin Detemir [Levemir] 10 units SUB-Q QHS 30 Days 10/05/16 Unknown Rx Levofloxacin 750Mg/150Ml [Levaquin 750 mg IV QDAY 14 Days 10/05/16 Unknown Rx IV PREMIX] Losartan [Cozaar] 100 mg PO QDAY #30 tablet 10/05/16 Unknown Rx Polyethylene Glycol 3350 [Miralax 17 gm PO BID PRN #1 powd.pack 10/05/16 Unknown Rx 3350] Simvastatin [Zocor TAB] 20 mg PO QHS #30 tablet 10/05/16 Unknown Rx Sodium Bicarbonate 650 mg PO BID #60 tablet 10/05/16 Unknown Rx Vancomycin 2,000 mg IV Q24H 14 Days 10/05/16 Unknown Rx Warfarin [Coumadin] 3 mg PO DAILY@1700 #30 tablet 10/05/16 Unknown Rx amLODIPine [Norvasc] 10 mg PO QDAY #30 tablet 10/05/16 Unknown Rx cloNIDine [Catapres] 0.2 mg PO Q8HR #90 tablet 10/05/16 Unknown Rx oxyCODONE /ACETAMINOPHEN [Percocet 2 tab PO Q4H PRN #60 tablet 10/05/16 Unknown Rx 5/325 mg] Allergies Allergy/AdvReac Type Severity Reaction Status Date / Time heparin Allergy Severe THROMBOCYTO Verified 09/06/16 10:08 LEO ED Review of Systems ROS: Stated complaint: IV REMOVED Other details as noted in HPI Constitutional: denies: chills, fever Eyes: denies: eye pain, eye discharge, vision change ENT: denies: ear pain, throat pain Respiratory: denies: cough, shortness of breath, wheezing Cardiovascular: denies: chest pain, palpitations Endocrine: no symptoms reported Gastrointestinal: denies: abdominal pain, nausea, diarrhea Genitourinary: denies: urgency, dysuria, discharge Musculoskeletal: denies: back pain, joint swelling, arthralgia Skin: denies: rash, lesions Neurological: denies: headache, weakness, paresthesias Psychiatric: denies: anxiety, depression Hematological/Lymphatic: denies: easy bleeding, easy bruising ED Past Medical Hx - Past Medical History Hx Hypertension: Yes Hx Congestive Heart Failure: No Hx Diabetes: Yes Hx Deep Vein Thrombosis: Yes (currently in left leg) Hx Pulmonary Embolism: Yes (2016) Hx Asthma: No Hx COPD: No Hx HIV: No - Surgical History Past Surgical History?: No - Social History Smoking Status: Never Smoker Substance Use Type: None - Medications Home Medications: Home Medications Medication Instructions Recorded Confirmed Last Taken Type Ascorbic Acid [Vitamin C] 1,000 mg PO BID tablet 09/13/16 09/28/16 Unknown Rx Carvedilol [Coreg] 25 mg PO BID #60 tablet 10/05/16 Unknown Rx Clopidogrel [Plavix] 75 mg PO QDAY #30 tablet 10/05/16 Unknown Rx Fenofibrate [Tricor] 145 mg PO QDAY #30 tablet 10/05/16 Unknown Rx Ferrous Sulfate [Feosol 325 MG tab] 325 mg PO BID #60 tablet 10/05/16 Unknown Rx Hydrochlorothiazide [HCTZ] 25 mg PO QDAY #30 tablet 10/05/16 Unknown Rx Insulin Detemir [Levemir] 10 units SUB-Q QHS 30 Days 10/05/16 Unknown Rx Levofloxacin 750Mg/150Ml [Levaquin 750 mg IV QDAY 14 Days 10/05/16 Unknown Rx IV PREMIX] Losartan [Cozaar] 100 mg PO QDAY #30 tablet 10/05/16 Unknown Rx Polyethylene Glycol 3350 [Miralax 17 gm PO BID PRN #1 powd.pack 10/05/16 Unknown Rx 3350] Simvastatin [Zocor TAB] 20 mg PO QHS #30 tablet 10/05/16 Unknown Rx Sodium Bicarbonate 650 mg PO BID #60 tablet 10/05/16 Unknown Rx Vancomycin 2,000 mg IV Q24H 14 Days 10/05/16 Unknown Rx Warfarin [Coumadin] 3 mg PO DAILY@1700 #30 tablet 10/05/16 Unknown Rx amLODIPine [Norvasc] 10 mg PO QDAY #30 tablet 10/05/16 Unknown Rx cloNIDine [Catapres] 0.2 mg PO Q8HR #90 tablet 10/05/16 Unknown Rx oxyCODONE /ACETAMINOPHEN [Percocet 2 tab PO Q4H PRN #60 tablet 10/05/16 Unknown Rx 5/325 mg] ED Physical Exam - General Limitations: No Limitations General appearance: alert, in no apparent distress - Head Head exam: Present: atraumatic, normocephalic - Eye Eye exam: Present: normal appearance - ENT ENT exam: Present: mucous membranes moist - Neck Neck exam: Present: normal inspection - Respiratory Respiratory exam: Present: normal lung sounds bilaterally. Absent: respiratory distress - Cardiovascular Cardiovascular Exam: Present: regular rate, normal rhythm. Absent: systolic murmur, diastolic murmur, rubs, gallop - GI/Abdominal GI/Abdominal exam: Present: soft, normal bowel sounds - Extremities Exam Extremities exam: Present: normal capillary refill, other (central line noted to left arm with 3 external leads. No redness, tenderness, swelling noted around insertion site. Patient also has milky bandages wrapped left lower extremity which is consistent with her history of recent DVT surgery.). Absent : tenderness, pedal edema, joint swelling - Back Exam Back exam: Present: normal inspection - Neurological Exam Neurological exam: Present: alert, oriented X3 - Psychiatric Psychiatric exam: Present: normal affect, normal mood - Skin Skin exam: Present: warm, dry, intact, normal color. Absent: rash ED Course Vital Signs 10/29/16 18:47 Temperature 98.7 F Pulse Rate 83 Respiratory 16 Rate Blood Pressure 152/78 O2 Sat by Pulse 97 Oximetry ED Medical Decision Making - Medical Decision Making Patient is nontoxic and hemodynamically stable. I discussed case and treatment plan with attending Dr. Booth. I also consult the on-call vascular surgery towards recommendations on removing central line or not. Vascular surgery recommended that I do not remove central line and the patient needs to call Dr. Holden's office on 11/01/16. Patient is also to follow up with wound care on . Patient made aware of vascular surgery recommendations and patient will be discharged without removing central line. Critical care attestation.: If time is entered above; I have spent that time in minutes in the direct care of this critically ill patient, excluding procedure time. ED Disposition Clinical Impression: Visit for wound check Disposition: DISCHARGED TO HOME OR SELFCARE Is pt being admited?: No Does the pt Need Aspirin: No Condition: Good Instructions: Peripherally Inserted Central Catheters and Midline Catheters (ED ) Referrals: SHRUTI PEREA MD [Primary Care Provider] - 3-5 Days ALYCE HOLDEN MD [Staff Physician] - 3-5 Days Time of Disposition: 21:15
== END 2016-10-29 21:20 | disposition home or self-care (01) ==
LOC: ED 18:19
DX: Z45.2 Encounter for adjustment and management of vascular access device (principal); Z88.5 Allergy status to narcotic agent; I10 Essential (primary) hypertension; E11.9 Type 2 diabetes mellitus without complications; I82.4Z2 Acute embolism and thrombosis of unspecified deep veins of left distal lower extremity; I26.99 Other pulmonary embolism without acute cor pulmonale; Z79.4 Long term (current) use of insulin
CPT/HCPCS: 99282

== ENCOUNTER 2016-11-02 10:58 | Outpatient (CLI) | payer MEDICARE | END 2016-11-02 10:59 | disposition home or self-care (01) | LOC: WOUND 10:58 | PROVIDERS: ATTEND Surgery | DX: T81.89XD Other complications of procedures, not elsewhere classified, subsequent encounter (principal); E11.9 Type 2 diabetes mellitus without complications; I73.9 Peripheral vascular disease, unspecified; I51.7 Cardiomegaly; Z86.73 Personal history of transient ischemic attack (TIA), and cerebral infarction without residual deficits; Z86.718 Personal history of other venous thrombosis and embolism; Z87.891 Personal history of nicotine dependence; Y83.8 Other surgical procedures as the cause of abnormal reaction of the patient, or of later complication, without mention of misadventure at the time of the procedure | CPT/HCPCS: 99214; G0463 ==

== ENCOUNTER 2016-11-10 08:30 | Outpatient (CLI) | payer MEDICARE ==
[2016-11-10] MEDS ORDERED: XYLOCAINE TOPICAL 4% TP ONE ×2 (09:14→09:16)
[2016-11-10] MEDS ORDERED: SILVER NITRATE TP ONE ×2 (09:36→09:38)
== END 2016-11-10 08:31 | disposition home or self-care (01) ==
LOC: WOUND 08:30
PROVIDERS: ATTEND Surgery
DX: T81.89XD Other complications of procedures, not elsewhere classified, subsequent encounter (principal); E11.51 Type 2 diabetes mellitus with diabetic peripheral angiopathy without gangrene; I51.7 Cardiomegaly; Z86.718 Personal history of other venous thrombosis and embolism; Z86.73 Personal history of transient ischemic attack (TIA), and cerebral infarction without residual deficits; Z87.891 Personal history of nicotine dependence; Y83.8 Other surgical procedures as the cause of abnormal reaction of the patient, or of later complication, without mention of misadventure at the time of the procedure
CPT/HCPCS: 17250

== ENCOUNTER 2016-11-17 09:52 | Outpatient (CLI) | payer MEDICARE ==
[2016-11-17] MEDS ORDERED: XYLOCAINE TOPICAL 4% TP ONE ×2 (10:29→13:35)
[2016-11-17] MEDS ORDERED: SILVER NITRATE TP ONE ×2 (11:11→13:35)
== END 2016-11-17 09:53 | disposition home or self-care (01) ==
LOC: WOUND 09:52
PROVIDERS: ATTEND Surgery
DX: T81.89XD Other complications of procedures, not elsewhere classified, subsequent encounter (principal); E11.51 Type 2 diabetes mellitus with diabetic peripheral angiopathy without gangrene; I51.7 Cardiomegaly; I10 Essential (primary) hypertension; Z86.73 Personal history of transient ischemic attack (TIA), and cerebral infarction without residual deficits; Z86.718 Personal history of other venous thrombosis and embolism; Z87.891 Personal history of nicotine dependence; Y83.8 Other surgical procedures as the cause of abnormal reaction of the patient, or of later complication, without mention of misadventure at the time of the procedure
CPT/HCPCS: 17250

== ENCOUNTER 2016-11-24 09:47 | Outpatient (CLI) | payer MEDICARE ==
[2016-11-24] MEDS ORDERED: XYLOCAINE TOPICAL 4% TP ONE (11:00)
[2016-11-24] MEDS ORDERED: SILVER NITRATE TP ONE ×2 (11:06→11:31)
== END 2016-11-24 09:48 | disposition home or self-care (01) ==
LOC: WOUND 09:47
PROVIDERS: ATTEND Internal Medicine
DX: T81.89XD Other complications of procedures, not elsewhere classified, subsequent encounter (principal); F41.9 Anxiety disorder, unspecified; E11.51 Type 2 diabetes mellitus with diabetic peripheral angiopathy without gangrene; I51.7 Cardiomegaly; I10 Essential (primary) hypertension; Z86.718 Personal history of other venous thrombosis and embolism; Z86.73 Personal history of transient ischemic attack (TIA), and cerebral infarction without residual deficits; Z87.891 Personal history of nicotine dependence; Y83.8 Other surgical procedures as the cause of abnormal reaction of the patient, or of later complication, without mention of misadventure at the time of the procedure

== ENCOUNTER 2016-12-01 09:33 | Outpatient (CLI) | payer MEDICARE ==
[2016-12-01] MEDS ORDERED: XYLOCAINE TOPICAL 4% TP ONE (10:00)
[2016-12-01] MEDS ORDERED: SILVER NITRATE TP ONE ×2 (10:30→11:17)
== END 2016-12-01 09:34 | disposition home or self-care (01) ==
LOC: WOUND 09:33
PROVIDERS: ATTEND Surgery
DX: T81.89XD Other complications of procedures, not elsewhere classified, subsequent encounter (principal); E11.622 Type 2 diabetes mellitus with other skin ulcer; L97.821 Non-pressure chronic ulcer of other part of left lower leg limited to breakdown of skin; E11.51 Type 2 diabetes mellitus with diabetic peripheral angiopathy without gangrene; I51.7 Cardiomegaly; I10 Essential (primary) hypertension; Z86.718 Personal history of other venous thrombosis and embolism; Z86.73 Personal history of transient ischemic attack (TIA), and cerebral infarction without residual deficits; Z87.891 Personal history of nicotine dependence; Y83.8 Other surgical procedures as the cause of abnormal reaction of the patient, or of later complication, without mention of misadventure at the time of the procedure
CPT/HCPCS: 17250; G0463; 99215

== ENCOUNTER 2016-12-08 09:40 | Outpatient (CLI) | payer MEDICARE ==
[2016-12-08] MEDS ORDERED: XYLOCAINE TOPICAL 4% TP ONE ×2 (09:57→10:12)
== END 2016-12-08 09:41 | disposition home or self-care (01) ==
LOC: WOUND 09:40
PROVIDERS: ATTEND Surgery
DX: T81.89XD Other complications of procedures, not elsewhere classified, subsequent encounter (principal); E11.622 Type 2 diabetes mellitus with other skin ulcer; L97.821 Non-pressure chronic ulcer of other part of left lower leg limited to breakdown of skin; E11.51 Type 2 diabetes mellitus with diabetic peripheral angiopathy without gangrene; I51.7 Cardiomegaly; I10 Essential (primary) hypertension; Z86.718 Personal history of other venous thrombosis and embolism; Z87.891 Personal history of nicotine dependence; Z86.73 Personal history of transient ischemic attack (TIA), and cerebral infarction without residual deficits; Y83.8 Other surgical procedures as the cause of abnormal reaction of the patient, or of later complication, without mention of misadventure at the time of the procedure
CPT/HCPCS: 17250

== ENCOUNTER 2016-12-15 10:15 | Outpatient (CLI) | payer MEDICARE ==
[2016-12-15] MEDS ORDERED: XYLOCAINE TOPICAL 4% TP ONE (11:32)
== END 2016-12-15 10:16 | disposition home or self-care (01) ==
LOC: WOUND 10:15
PROVIDERS: ATTEND Surgery
DX: T81.89XD Other complications of procedures, not elsewhere classified, subsequent encounter (principal); E11.622 Type 2 diabetes mellitus with other skin ulcer; L97.821 Non-pressure chronic ulcer of other part of left lower leg limited to breakdown of skin; E11.51 Type 2 diabetes mellitus with diabetic peripheral angiopathy without gangrene; I51.7 Cardiomegaly; Z86.718 Personal history of other venous thrombosis and embolism; Z86.73 Personal history of transient ischemic attack (TIA), and cerebral infarction without residual deficits; Z87.891 Personal history of nicotine dependence; Y83.8 Other surgical procedures as the cause of abnormal reaction of the patient, or of later complication, without mention of misadventure at the time of the procedure

== ENCOUNTER 2016-12-22 10:56 | Outpatient (CLI) | payer MEDICARE ==
[2016-12-22] MEDS ORDERED: XYLOCAINE TOPICAL 4% TP ONE ×2 (11:44→12:00)
== END 2016-12-22 10:57 | disposition home or self-care (01) ==
LOC: WOUND 10:56
PROVIDERS: ATTEND Surgery
DX: T81.89XD Other complications of procedures, not elsewhere classified, subsequent encounter (principal); E11.622 Type 2 diabetes mellitus with other skin ulcer; L97.821 Non-pressure chronic ulcer of other part of left lower leg limited to breakdown of skin; I51.7 Cardiomegaly; I10 Essential (primary) hypertension; Z86.718 Personal history of other venous thrombosis and embolism; Z86.73 Personal history of transient ischemic attack (TIA), and cerebral infarction without residual deficits; Z87.891 Personal history of nicotine dependence; Y83.8 Other surgical procedures as the cause of abnormal reaction of the patient, or of later complication, without mention of misadventure at the time of the procedure

== ENCOUNTER 2017-01-13 09:18 | Outpatient (CLI) | payer MEDICARE ==
[2017-01-13] MEDS ORDERED: XYLOCAINE TOPICAL 4% TP ONE ×2 (10:05→10:09)
[2017-01-13] MEDS ORDERED: SILVER NITRATE TP ONE ×2 (10:27→15:12)
== END 2017-01-13 09:19 | disposition home or self-care (01) ==
LOC: WOUND 09:18
PROVIDERS: ATTEND Nurse Practitioner
DX: T81.89XD Other complications of procedures, not elsewhere classified, subsequent encounter (principal); I70.203 Unspecified atherosclerosis of native arteries of extremities, bilateral legs; E11.622 Type 2 diabetes mellitus with other skin ulcer; L97.821 Non-pressure chronic ulcer of other part of left lower leg limited to breakdown of skin; E11.51 Type 2 diabetes mellitus with diabetic peripheral angiopathy without gangrene; I51.7 Cardiomegaly; I10 Essential (primary) hypertension; F41.9 Anxiety disorder, unspecified; Z86.73 Personal history of transient ischemic attack (TIA), and cerebral infarction without residual deficits; Z86.718 Personal history of other venous thrombosis and embolism; Z87.891 Personal history of nicotine dependence; Y83.8 Other surgical procedures as the cause of abnormal reaction of the patient, or of later complication, without mention of misadventure at the time of the procedure

== ENCOUNTER 2017-01-20 08:38 | Outpatient (CLI) | payer MEDICARE ==
[2017-01-20] MEDS ORDERED: SILVER NITRATE TP ONE ×2 (09:14→10:00)
[2017-01-20] MEDS ORDERED: XYLOCAINE TOPICAL 4% TP ONE (09:30)
== END 2017-01-20 08:39 | disposition home or self-care (01) ==
LOC: WOUND 08:38
PROVIDERS: ATTEND Surgery
DX: T81.89XD Other complications of procedures, not elsewhere classified, subsequent encounter (principal); E11.622 Type 2 diabetes mellitus with other skin ulcer; L97.821 Non-pressure chronic ulcer of other part of left lower leg limited to breakdown of skin; I51.7 Cardiomegaly; I10 Essential (primary) hypertension; Z86.73 Personal history of transient ischemic attack (TIA), and cerebral infarction without residual deficits; Z79.4 Long term (current) use of insulin; Z86.718 Personal history of other venous thrombosis and embolism; Z87.891 Personal history of nicotine dependence; Y83.8 Other surgical procedures as the cause of abnormal reaction of the patient, or of later complication, without mention of misadventure at the time of the procedure
CPT/HCPCS: 17250

== ENCOUNTER 2017-01-27 10:14 | Outpatient (CLI) | payer MEDICARE ==
[2017-01-27] MEDS ORDERED: XYLOCAINE TOPICAL 2% TP ONE (11:23)
[2017-01-27] MEDS ORDERED: SILVER NITRATE TP ONE ×2 (11:46→14:58)
== END 2017-01-27 10:15 | disposition home or self-care (01) ==
LOC: WOUND 10:14
PROVIDERS: ATTEND Nurse Practitioner
DX: E11.622 Type 2 diabetes mellitus with other skin ulcer (principal); L97.821 Non-pressure chronic ulcer of other part of left lower leg limited to breakdown of skin; I70.203 Unspecified atherosclerosis of native arteries of extremities, bilateral legs; D75.82 Heparin induced thrombocytopenia (HIT); F41.9 Anxiety disorder, unspecified; I51.7 Cardiomegaly; Z86.718 Personal history of other venous thrombosis and embolism; Z86.73 Personal history of transient ischemic attack (TIA), and cerebral infarction without residual deficits; Z87.891 Personal history of nicotine dependence
CPT/HCPCS: 17250

== ENCOUNTER 2017-02-03 11:27 | Outpatient (CLI) | payer MEDICARE ==
[2017-02-03] MEDS ORDERED: XYLOCAINE TOPICAL 2% ONE (11:42)
[2017-02-03] MEDS ORDERED: XYLOCAINE TOPICAL 2% TP ONE (11:52)
[2017-02-03] MEDS ORDERED: SILVER NITRATE TP ONE (12:09)
== END 2017-02-03 11:28 | disposition home or self-care (01) ==
LOC: WOUND 11:27
PROVIDERS: ATTEND Nurse Practitioner
DX: E11.622 Type 2 diabetes mellitus with other skin ulcer (principal); L97.821 Non-pressure chronic ulcer of other part of left lower leg limited to breakdown of skin; I70.203 Unspecified atherosclerosis of native arteries of extremities, bilateral legs; D75.82 Heparin induced thrombocytopenia (HIT); I51.7 Cardiomegaly; Z86.718 Personal history of other venous thrombosis and embolism; Z86.73 Personal history of transient ischemic attack (TIA), and cerebral infarction without residual deficits; Z87.891 Personal history of nicotine dependence

== ENCOUNTER 2017-02-16 08:24 | Outpatient (CLI) | payer MEDICARE ==
[2017-02-16] MEDS ORDERED: XYLOCAINE TOPICAL 4% TP ONE ×2 (08:50→08:52)
[2017-02-16] MEDS ORDERED: SILVER NITRATE TP ONE (09:06)
[2017-02-17] MEDS ORDERED: SILVER NITRATE TP ONE (10:04)
== END 2017-02-16 08:25 | disposition home or self-care (01) ==
LOC: WOUND 08:24
PROVIDERS: ATTEND Surgery
DX: E11.622 Type 2 diabetes mellitus with other skin ulcer (principal); L97.821 Non-pressure chronic ulcer of other part of left lower leg limited to breakdown of skin; I70.203 Unspecified atherosclerosis of native arteries of extremities, bilateral legs; D75.82 Heparin induced thrombocytopenia (HIT); I51.7 Cardiomegaly; I10 Essential (primary) hypertension; Z86.718 Personal history of other venous thrombosis and embolism; Z86.73 Personal history of transient ischemic attack (TIA), and cerebral infarction without residual deficits; Z87.891 Personal history of nicotine dependence
CPT/HCPCS: 17250

== ENCOUNTER 2017-02-25 11:22 | Outpatient (CLI) | payer MEDICARE ==
[2017-02-25] MEDS ORDERED: XYLOCAINE TOPICAL 4% TP ONE ×2 (11:32→11:46)
== END 2017-02-25 11:23 | disposition home or self-care (01) ==
LOC: WOUND 11:22
PROVIDERS: ATTEND Podiatrist
DX: E11.622 Type 2 diabetes mellitus with other skin ulcer (principal); L97.822 Non-pressure chronic ulcer of other part of left lower leg with fat layer exposed; I70.203 Unspecified atherosclerosis of native arteries of extremities, bilateral legs; D75.82 Heparin induced thrombocytopenia (HIT); I51.7 Cardiomegaly; F41.9 Anxiety disorder, unspecified; Z86.718 Personal history of other venous thrombosis and embolism; Z86.73 Personal history of transient ischemic attack (TIA), and cerebral infarction without residual deficits

== ENCOUNTER 2017-04-01 11:10 | Outpatient (CLI) | payer MEDICARE ==
[2017-04-01] MEDS ORDERED: XYLOCAINE TOPICAL 4% TP ONE ×2 (11:22→11:23)
== END 2017-04-01 11:11 | disposition home or self-care (01) ==
LOC: WOUND 11:10
PROVIDERS: ATTEND Podiatrist
DX: I70.248 Atherosclerosis of native arteries of left leg with ulceration of other part of lower leg (principal); E11.622 Type 2 diabetes mellitus with other skin ulcer; L97.822 Non-pressure chronic ulcer of other part of left lower leg with fat layer exposed; I51.7 Cardiomegaly; I10 Essential (primary) hypertension; Z86.718 Personal history of other venous thrombosis and embolism; Z86.73 Personal history of transient ischemic attack (TIA), and cerebral infarction without residual deficits; Z87.891 Personal history of nicotine dependence
CPT/HCPCS: 87075; 87076; 87116; 87186

== ENCOUNTER 2017-05-26 09:49 | Outpatient (CLI) | payer MEDICARE ==
[2017-05-26] MEDS ORDERED: XYLOCAINE TOPICAL 4% TP ONE ×2 (10:19→10:28)
== END 2017-05-26 09:50 | disposition home or self-care (01) ==
LOC: WOUND 09:49
PROVIDERS: ATTEND Nurse Practitioner
DX: E11.622 Type 2 diabetes mellitus with other skin ulcer (principal); L97.822 Non-pressure chronic ulcer of other part of left lower leg with fat layer exposed; I70.203 Unspecified atherosclerosis of native arteries of extremities, bilateral legs; I51.7 Cardiomegaly; I10 Essential (primary) hypertension; F41.9 Anxiety disorder, unspecified; Z86.73 Personal history of transient ischemic attack (TIA), and cerebral infarction without residual deficits; Z86.718 Personal history of other venous thrombosis and embolism; Z87.891 Personal history of nicotine dependence
CPT/HCPCS: 97598

== ENCOUNTER 2017-06-09 10:55 | Outpatient (CLI) | payer MEDICARE ==
[2017-06-09] MEDS ORDERED: XYLOCAINE TOPICAL 2% 5ML ONE (11:53)
[2017-06-09] MEDS ORDERED: XYLOCAINE TOPICAL 2% 5ML TP ONE (11:57)
== END 2017-06-09 10:56 | disposition home or self-care (01) ==
LOC: WOUND 10:55
PROVIDERS: ATTEND Nurse Practitioner
DX: E11.622 Type 2 diabetes mellitus with other skin ulcer (principal); L97.822 Non-pressure chronic ulcer of other part of left lower leg with fat layer exposed; I70.203 Unspecified atherosclerosis of native arteries of extremities, bilateral legs; F41.9 Anxiety disorder, unspecified; I51.7 Cardiomegaly; I10 Essential (primary) hypertension; Z86.718 Personal history of other venous thrombosis and embolism; Z86.73 Personal history of transient ischemic attack (TIA), and cerebral infarction without residual deficits; Z87.891 Personal history of nicotine dependence
CPT/HCPCS: 99213; G0463